=== PATIENT | female | born 1955 | race Caucasian/White ===

== ENCOUNTER 2020-12-09 00:28 | Day surgery (SDC) | payer BC, OTHER, SELFPAY ==
[2020-11-27 14:10] VITALS: BMI 35.2
--- NOTE | 2020-12-08 16:37 | PM.HPGS ---
History of Present Illness History of Present Illness Consent: Risks, benefits, and alternatives have been discussed and questions answered. Patient agrees to proceed with procedure. Chief complaint: neoplasm screening Z12.11 Narrative: Kadi Mccann is a 65 year old female Here for colon cancer screening. Her last colonoscopy was 10 years ago Review of Systems Review of Systems: All systems reviewed & are unremarkable except as noted in HPI and below PMFSH Past Medical History Medical History Diabetes HTN (hypertension) Hyperlipidemia Obesity JEAN (obstructive sleep apnea) Surgical History Surgical History History of carpal tunnel surgery History of foot surgery Social History Social History Smoking status: Never smoker Alcohol intake: current Drinks per week: 1 Substance use: never Substance use type: does not use Living arrangements: with family Spiritual care concerns: No Meds Home Medications and Allergies Home Medications Medication Instructions Recorded Confirmed Type atorvastatin 10 mg PO 3XW 11/27/20 12/09/20 History citalopram 20 mg PO DAILY 11/27/20 12/09/20 History clobetasol 1 applic TOPICAL PRN PRN 11/27/20 11/27/20 History losartan-hydrochlorothiazide 1 tablet PO DAILY 11/27/20 12/09/20 History metformin 500 mg PO BID 11/27/20 12/09/20 History montelukast 10 mg PO DAILY 11/27/20 12/09/20 History Allergies Allergy/AdvReac Type Severity Reaction Status Date / Time codeine Allergy Mild Headache Verified 12/09/20 09:42 Sulfa (Sulfonamide Allergy Mild Unknown Verified 12/09/20 09:42 Antibiotics) Exam Resp: Auscultation: clear to auscultation bilaterally Cardio: Rate: regular rate Rhythm: regular rhythm GI: GI Palp: Yes Soft to palpation and No Tenderness to palpation present (GI) Assessment and Plan Assessment and plan (1) Colon cancer screening: Code(s): Z12.11 - Encounter for screening for malignant neoplasm of colon Status: Acute Assessment and Plan: Colonoscopy with possible biopsy or polypectomy or cautery or injection of substances.
[2020-12-09 09:43] VITALS: BP 150/79; PULSE 91; RESP 20; TEMP 36.1; O2SAT 98; BMI 33.8
--- NOTE | 2020-12-09 09:56 | WPDANESEPPF ---
Anes - Initial Pre Proc Eval Procedure: Operation Date: 12/09/20 10:30 Proposed Procedures p Screening Colonoscopy - Salvatore Davis MD Date/Time: 12/09/20 09:56 Surgeon: Salvatore Davis MD Pre Op Diagnosis: neoplasm screening Z12.11 Patient Data Age: 65 Gender: F Height: 1.65 m Weight: 92.3 kg Last Vital Signs Temp 36.1 C L 12/09/20 09:43 Pulse 91 12/09/20 09:43 Resp 20 12/09/20 09:43 BP 150/79 H 12/09/20 09:43 Pulse Ox 98 12/09/20 09:43 Allergies Allergy/AdvReac Type Severity Reaction Status Date / Time codeine Allergy Mild Headache Verified 12/09/20 09:42 Sulfa (Sulfonamide Allergy Mild Unknown Verified 12/09/20 09:42 Antibiotics) Home Medications Medication Instructions Recorded Confirmed Type atorvastatin 10 mg PO 3XW 11/27/20 12/09/20 History citalopram 20 mg PO DAILY 11/27/20 12/09/20 History clobetasol 1 applic TOPICAL PRN PRN 11/27/20 11/27/20 History losartan-hydrochlorothiazide 1 tablet PO DAILY 11/27/20 12/09/20 History metformin 500 mg PO BID 11/27/20 12/09/20 History montelukast 10 mg PO DAILY 11/27/20 12/09/20 History Patient hx anesthesia problems: none Family hx anesthesia problems: none PMFSH Past Medical History Medical History (Updated 12/09/20 @ 10:01 by Ruel Laguerre MD) Diabetes HTN (hypertension) Hyperlipidemia Obesity JEAN (obstructive sleep apnea) Surgical History Surgical History (Updated 12/09/20 @ 10:09 by Ruel Laguerre MD) History of carpal tunnel surgery History of foot surgery Social History Social History Smoking status: Never smoker Alcohol intake: current Drinks per week: 1 Substance use: never Substance use type: does not use Living arrangements: with family Spiritual care concerns: No Anes - Eval Final PreProcedure Day of Procedure 12/09/20 09:56 Patient weight: obese Heart: regular rate and rhythm Lungs: clear to auscultation Airway: Mallampati scale class II Neurological: alert and oriented Last oral intake: >/= 8 hours ASA classification: III Emergent: no Anesthetic plan: proceed Anesthesia type and monitoring: general GIVS and standard monitoring Informed Consent: The patient's anesthetic plan and its attendant risks and benefits were discussed with the patient/family/POA. Questions were solicited and answers provided to the satisfaction of the patient/family/POA.
[2020-12-09 10:06] LABS: Glucose Point of Care 174 mg/dl (65-105)
[2020-12-09] MEDS: LACTATED RINGERS 1,000 ML 150 ML IV CONT (10:06)
[2020-12-09 10:36] VITALS: BP 88/35; PULSE 79; RESP 21; O2SAT 93
[2020-12-09 10:46] VITALS: BP 92/36; PULSE 75; RESP 18; O2SAT 92
[2020-12-09 10:56] VITALS: BP 136/61; PULSE 76; RESP 20; O2SAT 95
== END 2020-12-09 11:04 | disposition home or self-care (01) ==
PROVIDERS: PCP Internal Medicine; Visit Provider Internal Medicine Gastroenterology
PROC: 0DJD8ZZ Inspection of Lower Intestinal Tract, Via Natural or Artificial Opening Endoscopic (ICD-10-PCS; CPT 45378; principal; 2020-12-09 10:30)
DX: Z12.11 Encounter for screening for malignant neoplasm of colon (principal); D12.5 Benign neoplasm of sigmoid colon; K63.5 Polyp of colon; K64.4 Residual hemorrhoidal skin tags; I10 Essential (primary) hypertension; E78.5 Hyperlipidemia, unspecified; E11.9 Type 2 diabetes mellitus without complications; G47.33 Obstructive sleep apnea (adult) (pediatric); Z79.84 Long term (current) use of oral hypoglycemic drugs; E66.9 Obesity, unspecified; Z68.33 Body mass index [BMI] 33.0-33.9, adult
CPT/HCPCS: 45385; 82948; 88305; J2704; J7120

== ENCOUNTER → 2021-01-09 09:20 | Outpatient (CLI) | payer BC, OTHER, SELFPAY ==
--- NOTE | ~2021-01-09 | DEXA_ITS ---
Bone Density Report Name: Kadi Mccann Age: 65 Sex: Female Ethnicity: White Date of : 1955 Indication: postmenopausal; screening for osteoporosis; height loss; Referring Provider: JOEY, BRANDON Study: Bone densitometry was performed. Exam Date: January 09, 2021 Accession number: [id number] Bone Density: Region BMD T-score Z-score Classification AP Spine (L1-L4) 1.180 1.2 3.0 Normal Femoral Neck (Left) 0.702 -1.3 0.2 Osteopenia Total Hip (Left) 1.005 0.5 1.7 Normal Femoral Neck (Right) 0.773 -0.7 0.8 Normal Total Hip (Right) 1.035 0.8 2.0 Normal Total Hip Mean 1.020 0.7 1.9 Normal World Health Organization criteria for BMD impression classify patients as: Normal (T-score at or above -1.0), Osteopenia (T-score between -1.0 and -2.5), or Osteoporosis (T-score at or below -2.5). 10-year Fracture Risk(1): Major Osteoporotic Fracture 7.7% Hip Fracture 0.7% Reported Risk Factors: [place] (), Neck BMD=0.702, BMI=36.8 (1) FRAX(R) Version 3.08. Fracture probability calculated for an untreated patient. Fracture probability may be lower if the patient has received treatment. Clinical Information Provided by Patient: Has used the following medications: Calcium Patient maximum height was 65 Menopause Age: 43 No regular weight bearing exercise Drinks caffeinated beverages Onset of menses at age 14 Number of children 1 Impression: The patient has low bone mass, based on the Left Femoral Neck T-score. The patient has an estimated ten-year risk of hip fracture of 0.7% and an estimated ten-year risk of major fracture of 7.7%, based on the WHO FRAX algorithm. Discussion: BONE DENSITY IS LOW AT ONE OR MORE SKELETAL SITES. This patient's lowest T-score is low at one or more skeletal sites. It meets the World Health Organization's (WHO) criteria for ?low bone mass? (T-score between -1.0 and -2.5). The patient's 10-year risk of fracture as calculated by FRAX is less than the threshold where pharmacological therapy is recommended by the National Osteoporosis Foundation (NOF). However, all treatment decisions require clinical judgment and consideration of individual patient factors, including patient preferences, comorbidities, previous drug use, risk factors not captured in the FRAX model (e.g., frailty, falls, vitamin D deficiency, increased bone turnover, interval significant decline in bone density) and possible under or overestimation of fracture risk by FRAX. The patient should follow a healthful lifestyle (good nutrition with adequate calcium and vitamin D, and appropriate weight-bearing exercise). Follow-Up: Consider repeating this study in 2 to 3 years to reassess this patient's status, or sooner if there is some new clinical indication. Reported by: GEORGE on
--- NOTE | ~2021-01-09 | MM_ITS ---
EXAMINATION: MM screening jordyn BI w joo HISTORY: Screening mammogram TECHNIQUE: Craniocaudal and mediolateral oblique 3-D tomosynthesis images were obtained and synthetic 2-D images were generated. CAD analysis was submitted and interpreted. COMPARISON: No prior mammogram is available for comparison at this institution. BREAST PARENCHYMAL COMPOSITION: The breasts are almost entirely fatty. FINDINGS: Scattered bilateral benign microcalcifications. There is no evidence of suspicious mass, ca lcification, or architectural distortion to suggest malignancy in either breast. There has been no fajardo spicious interval change. IMPRESSION: 1. No mammographic evidence of malignancy. 2. Recommend routine screening mammography in one year. BI-RADS Category 2: Benign finding(s). Reviewed, dictated and finalized at location A.
== END ==
PROVIDERS: PCP Internal Medicine; Visit Provider Nurse Practitioner
DX: Z12.31 Encounter for screening mammogram for malignant neoplasm of breast (principal); Z78.0 Asymptomatic menopausal state; M85.852 Other specified disorders of bone density and structure, left thigh
CPT/HCPCS: 77063; 77067; 77080

== ENCOUNTER 2021-08-02 11:39 | Emergency (ER) | payer MEDICARE, SELFPAY ==
--- NOTE | ~2021-08-02 | XR_ITS ---
EXAMINATION: XR wrist LT min 3V DATE: 08/02/2021 12:04 INDICATION: Left wrist pain, swelling and abrasions post fall TECHNIQUE: Posteroanterior, ulnar deviation, oblique, and lateral views of the left wrist were obtain ed. COMPARISON: none FINDINGS: Irregular cortical contour with underlying linear lucency at the dorsal aspect of the metaphyseal reg ion suspicious for nondisplaced fracture. No evident intra-articular extension appreciated. No other lesions suspicious for fracture identified. Polyarticular osteoarthritis, moderate severity at the fi rst interphalangeal and second and third metacarpophalangeal joints and mild at the wrist, triscaphe, first carpometacarpal and first and fourth metacarpophalangeal joints. Soft tissues are unremarkable . IMPRESSION: 1. Possible nondisplaced fracture along the dorsal metaphysis of the distal left radius. There is how ever no significant overlying soft tissue swelling and appearance may be artifactual. Correlate for p oint tenderness at this location. 2. 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 Reviewed, dictated and finalized at location A. IMPRESSION: 1. Possible nondisplaced fracture along the dorsal metaphysis of the distal lef t radius. There is however no significant overlying soft tissue swelling and ap pearance may be artifactual. Correlate for point tenderness at this location. 2. 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
[2021-08-02 11:57] VITALS: BP 162/85; PULSE 84; RESP 18; TEMP 37.4; O2SAT 97
--- NOTE | 2021-08-02 12:09 | ED.UPPEXIN ---
HPI - Extremity Injury (Upper) General Chief Complaint: Extremity Injury, Upper Stated Complaint: Left hand Pain Time Seen by Provider: 08/02/21 12:24 Source: patient, family, RN notes reviewed and old records reviewed Mode of arrival: ambulatory Limitations: no limitations History of Present Illness HPI narrative: 66-year-old female presents to the [facility] with complaints of left wrist pain after tripping and falling onto an outstretched arm. No pain of the shoulder or the elbow. abrasion noted to the elbow. Tenderness to the distal aspect volar aspect, radius. No open wounds. Full range of motion of all 5 fingers with strong entry level mechanical engineer. No snuffbox tenderness. positive radial pulse. Sensation intact 5 fingers with capillary refill under 2 seconds Related Data Home Medications Medication Instructions Recorded Confirmed atorvastatin 10 mg PO 3XW 11/27/20 08/02/21 citalopram 20 mg PO DAILY 11/27/20 08/02/21 clobetasol 1 applic TOPICAL PRN PRN 11/27/20 08/02/21 losartan-hydrochlorothiazide 1 tablet PO DAILY 11/27/20 08/02/21 metformin 1,000 mg PO DIRECTED 11/27/20 08/02/21 montelukast 10 mg PO DAILY 11/27/20 08/02/21 metformin 500 mg PO DIRECTED 08/02/21 08/02/21 Allergies Allergy/AdvReac Type Severity Reaction Status Date / Time codeine Allergy Mild Headache Verified 08/02/21 11:41 Sulfa (Sulfonamide Allergy Mild Unknown Verified 08/02/21 11:41 Antibiotics) Review of Systems Review of Systems: All systems reviewed & are unremarkable except as noted in HPI and below Constitutional: Constitutional: Reports no additional constitutional complaints, Denies chills, Denies fever(s), Denies headache(s) and Denies weakness Eyes: Eyes: Reports no additional eye complaints ENT: Reports system reviewed and no additional complaints, except as documented, Denies vertigo, Denies dizziness and Denies headache(s) Cardiovascular: Cardiovascular: Reports no additional cardiovascular complaints, Denies chest pain, Denies syncope and Denies dyspnea Respiratory: Respiratory: Reports no additional respiratory complaints, Denies cough and Denies dyspnea Gastrointestinal: Gastrointestinal: Reports no additional gastrointestinal complaints, Denies abdominal pain, Denies nausea and Denies vomiting Musculoskeletal: Musculoskeletal: Reports as per HPI, Reports arthralgias (Left wrist), Reports joint swelling (Left wrist) and Denies numbness Integumentary/Breasts: Skin/Breast: Reports system reviewed and no additional complaints, except as docu Neurologic: Reports system reviewed and no additional complaints, except as documented, Denies confusion, Denies vertigo, Denies dizziness, Denies syncope, Denies headache(s), Denies focal weakness, Denies numbness and Denies weakness Psychiatric: Psychiatric: Reports no additional psychiatric complaints and Denies confusion Allergic/Immunologic: Allergic/Immunologic: Reports no additional allergic/immunologic complaints PMFSH Past Medical History Medical History Diabetes HTN (hypertension) Hyperlipidemia Obesity JEAN (obstructive sleep apnea) Surgical History Surgical History History of carpal tunnel surgery History of foot surgery Social History Social History Smoking status: Never smoker Alcohol intake: current Drinks per week: 1 Substance use: never Substance use type: does not use Spiritual care concerns: No Comments At the time of my signature, I reviewed and agree with the nursing past medical, surgical, social, and family history. There is no relevant family history pertinent to the patient complaint. Exam Const: General: healthy appearing, no acute distress and alert; No confusion Nutritional Appearance: well nourished Orientation/consciousness: patient oriented x3 Limitations: no limitations HENMT:
== END 2021-08-02 12:50 | disposition home or self-care (01) ==
PROVIDERS: Emergency Provider Nurse Practitioner; PCP Internal Medicine
DX: S52.502A Unspecified fracture of the lower end of left radius, initial encounter for closed fracture (principal); E11.9 Type 2 diabetes mellitus without complications; I10 Essential (primary) hypertension; E78.5 Hyperlipidemia, unspecified; W01.0XXA Fall on same level from slipping, tripping and stumbling without subsequent striking against object, initial encounter
CPT/HCPCS: 29125; 73110; 99214; A4565; G0463

== ENCOUNTER 2021-09-29 07:30 | Outpatient (RCR) | payer MEDICARE, SELFPAY ==
--- NOTE | 2021-09-07 10:52 | OTOPEVAL ---
OCCUPATIONAL THERAPY INITIAL EVALUATION REPORT 09/07/21 Thank you for referring Kadi Mccann to [facility].? The patient is scheduled to be seen for therapy? 1x/week for 3 weeks. Please review, sign, date and return this plan of care EULALIA. I agree with and certify that the following plan of care is medically necessary. Referring Physician Date Referring Provider: Lon Roe MD *OT Outpatient Evaluation Problem Diagnosis Left distal radius fracture Onset ~5 weeks ago Cause Fall Subjective Information Patient was treated Query Text:As Reported By Patient/ conservatively. Comes in Family wearing an immobilizer today, reports she is allowed to take it off at home for tasks, but should continue to wear when leaving the home. Reports difficulties with putting pressure through an extended wrist, like when she pushes up from a chair. She states she can do her ADLs, she just gets them done , but reports soreness in the wrist during. She and her own/run a farm. Prior Level of Function Activity Level (Last 3 Months) Hand Dominance Right Activity of Daily Living Ability Independent Cooking Yes Cleaning Yes Laundry Yes Shopping Yes Driving Yes Pain Assessment Timing of Pain Assessment Timing of Pain Assessment Assessment Pain Scale Pain Scale Used Numeric (1 - 10) Self Report Pain Assessment Left Wrist(s) Reported Pain Level 0 Lowest Pain Intensity 0 Greatest Pain Intensity 6 Pain Score Pain Score 0: Self Report Interventions Used Interventions Used By Clinicians Education,Exercise Upper Extremity Range of Motion Elbow/Forearm Range of Motion Bilateral Reason Not Measured WNL/Left,WNL/Right Elbow/Forearm Range of Motion Comments Bilateral pronation/supination is symmetrical and WNL. Wrist Range of Motion Right Wrist Flexion - Active 65 Wrist Extension - Active 60 Wrist Radial Deviation - Active 25 Wrist Ulnar Deviation - Active 30 Left Wrist Flexion - Active 35 Wrist Extension - Active 50 Wrist Radial Deviation - Active 25 Wrist Ulnar Deviation - Active 20 Finger Range of Motion Bilateral Reason Not Measured WNL/Left,WNL/Right Thumb Range of Motion
--- NOTE | 2021-09-15 10:41 | PCOTNOTE ---
Patient called & cancelled scheduled appointment this date due.
--- NOTE | 2021-09-29 07:50 | OTOPEVAL ---
OCCUPATIONAL THERAPY RE-EVALUATION AND DISCHARGE SUMMARY 09/29/21 Kadi presents today for OT re-evaluation following 2 sessions for HEP instruction and progression. Her ROM has returned to normal limits and she is tolerating gentle strengthening with no reports of pain. Plan to discharge today with patient independent with HEP. Thank you for referring Kadi Mccann to [facility].? Please review, sign, date and return this D/C Note EULALIA. I agree with and certify that the following plan of care is medically necessary. Referring Physician Date Referring Provider: Lon Roe MD Re-Evaluation Information Diagnosis Left distal radius fracture Onset ~8 weeks ago Cause Fall Additional Evaluation Detail Patient was treated conservatively. Subjective Information Patient presents today Query Text:As Reported By Patient/ reporting that her ROM and Family flexibility have improved since the start of care. She reports residual soreness after use, but no pains during or after use. She reports no functional limitations at this time. States she uses the brace outside of the home and does put it on if she's had a busy day and is sore after using the hand/wrist. Pain Assessment Timing of Pain Assessment Timing of Pain Assessment Re-assessment Pain Scale Pain Scale Used Numeric (1 - 10) Self Report Pain Assessment Left Wrist(s) Reported Pain Level 0 Lowest Pain Intensity 0 Greatest Pain Intensity 4 Pain Score Pain Score 0: Self Report Upper Extremity Range of Motion Elbow/Forearm Range of Motion Left Reason Not Measured WNL/Left Elbow/Forearm Range of Motion Comments Elbow flexion, extension, pronation, and supination remained WNL. Wrist Range of Motion Left Wrist Flexion - Active 60 Wrist Extension - Active 70 Wrist Radial Deviation - Active 25 Wrist Ulnar Deviation - Active 35 Wrist Range of Motion Comments Flexion improved from 35* Extension improved from 50* RD remained WNL at 25* UD improved from 20* Finger Range of Motion Left Reason Not Measured WNL/Left Thumb Range of Motion Left Reason Not Measured WNL/Left Hand Fios Line Installer/Pinch Strength Assessment Hand Left Fios Line Installer Strength (lbs) 35 Hand Fios Line Installer/Pinch Strength Comments Patient is independent with aviation all source intelligence strengthening HEP.
== END 2021-09-29 08:35 | disposition home or self-care (01) ==
LOC: ANHOT 07:30
PROVIDERS: PCP Internal Medicine; Referring Provider Orthopaedic Surgery; Visit Provider Orthopaedic Surgery
DX: S52.502D Unspecified fracture of the lower end of left radius, subsequent encounter for closed fracture with routine healing (principal)
CPT/HCPCS: 97110; 97165

== ENCOUNTER → 2022-04-19 11:01 | Outpatient (CLI) | payer MEDICARE, SELFPAY ==
--- NOTE | ~2022-04-19 | MM_ITS ---
EXAMINATION: MM screening jordyn BI w joo HISTORY: Screening mammogram TECHNIQUE: Craniocaudal and mediolateral oblique 3-D tomosynthesis images were obtained and synthetic 2-D images were generated. CAD analysis was submitted and interpreted. COMPARISON: 01/09/2021 BREAST PARENCHYMAL COMPOSITION: The breasts are almost entirely fatty. FINDINGS: No suspicious mass, calcification, or architectural distortion are identified in either elvia ast to suggest malignancy. There has been no suspicious interval change. IMPRESSION: 1. No mammographic evidence of malignancy. 2. Recommend routine screening mammography in one year. BI-RADS Category 1: Negative Reviewed, dictated and finalized at location A. R QUALITY CONTROL ENGINEER
== END ==
PROVIDERS: PCP Internal Medicine; Visit Provider Nurse Practitioner
DX: Z12.31 Encounter for screening mammogram for malignant neoplasm of breast (principal)
CPT/HCPCS: 77063; 77067

== ENCOUNTER 2023-04-06 07:15 | Outpatient (RCR) | payer MEDICARE, SELFPAY | END 2023-04-10 16:13 | disposition home or self-care (01) | LOC: ANHCPREHAB 07:15 | PROVIDERS: PCP Internal Medicine; Visit Provider Internal Medicine Cardiovascular Disease | DX: Z95.2 Presence of prosthetic heart valve (principal) | CPT/HCPCS: 93798 ==

== ENCOUNTER 2023-06-09 14:25 | Emergency (ER) | payer MEDICARE, SELFPAY ==
--- NOTE | 2023-06-09 14:36 | ED.FEMALEGU ---
HPI - Female Genitourinary General Chief complaint: Urogenital-Female Stated complaint: urinary/vaginal issue, head pressure,FLOYD Time Seen by Provider: 06/09/23 14:33 Source: patient Mode of arrival: ambulatory Limitations: no limitations History of Present Illness HPI Narrative: Kadi is a 68-year-old female patient presenting to the clinic today with complaints of urinary frequency and urgency x2 days. She also is reporting headache over her forehead and dizziness when bending forward. States that when she bends forward she feels off-balance. History of a open heart surgery last year. Is also type to diabetic. Reports that her blood sugar yesterday was 190. Related Data Home Medications Medication Instructions Recorded Confirmed citalopram 20 mg tablet 20 mg PO DAILY 11/27/20 12/15/21 metformin 500 mg tablet 1,000 mg PO DIRECTED 11/27/20 12/15/21 montelukast 10 mg tablet 10 mg PO DAILY 11/27/20 12/15/21 metformin 500 mg tablet 500 mg PO DIRECTED 08/02/21 12/15/21 cholecalciferol (vitamin D3) 25 25 mcg PO DAILY 10/14/21 12/15/21 mcg (1,000 unit) capsule vitamin B complex 1 cap PO DAILY 10/14/21 12/15/21 losartan 25 mg tablet mg 06/09/23 metoprolol succinate 25 mg mg PO 06/09/23 tablet,extended release 24 hr Allergies Allergy/AdvReac Type Severity Reaction Status Date / Time codeine Allergy Mild Headache Verified 06/09/23 15:09 Sulfa (Sulfonamide Allergy Mild Unknown Verified 06/09/23 15:09 Antibiotics) Review of Systems Review of Systems: Pertinent positives per HPI. Patient denies any fever, chills, rash, visual changes, cough,sore throat, shortness of breath, chest pain, palpitations, nausea, vomiting, diarrhea, constipation, abdominal pain. [facility] Past Medical History Medical History Diabetes Distal radius fracture, left History of basal cell carcinoma HTN (hypertension) Hyperlipidemia Nondisplaced fracture of distal end of ulna Obesity JEAN (obstructive sleep apnea) Surgical History Surgical History History of carpal tunnel surgery History of foot surgery Family History Family History Father Leukemia Mother Aorta disorder Grandparent Diabetes mellitus Sibling Hypertension Hyperlipidemia COPD (chronic obstructive pulmonary disease) Osteoporosis Basal cell carcinoma Social History Social History Smoking status: Never smoker Alcohol intake: never Drinks per week: 1 Substance use: never Substance use type: does not use Living arrangements: with family Occupation/Education: occupation Additional occupation/education comments: [employer] Spiritual care concerns: No Comments At the time of my signature, I reviewed and agree with the nursing past medical, surgical, social, and family history. There is no relevant family history pertinent to the patient complaint. Exam Narrative: General: Well-developed, well nourished, in no apparent distress Head: Normocephalic, atraumatic Eyes: Pupils equally round and reactive to light bilaterally, EOM intact, sclera and conjunctive clear, no discharge, lids normal Ears: TMs intact, clear, bulging, ear canals clear, no drainage, grossly hearing normal. Nose: Nares patent, yellow nasal discharge, moderate inflammation, frontal sinus tenderness. Mouth: Oropharynx without lesions or masses, good dentition, MMM. Postnasal drip Neck: Supple, trachea midline, no enlargement of anterior or posterior cervical nodes, no thyroid masses or goiter palpable. Cardio: Regular rate and rhythm, s1 and s2 normal, no murmur appreciated. Resp: Clear to auscultation bilaterally anteriorly and posteriorly, no rhonchi, rales, wheezing or rubs Abdomen: Soft, pliable, bowel sounds present in all quadr
--- NOTE | 2023-06-09 14:59 | ECG_ITS ---
Measurements Intervals [place] Rate: 75 P: 0 UT: 129 QRS: -21 QRSD: 99 T: 111 QT: 372 QTc: 416 Interpretive Statements SINUS RHYTHM CANNOT RULE OUT SEPTAL INFARCT, AGE INDETERMINATE CONSIDER INFERIOR INFARCT, AGE INDETERMINATE ST-T WAVE ABNORMALITY IN HIGH LATERAL LEADS- CONSIDER ISCHEMIA ABNORMAL ECG NO PREVIOUS ECG AVAILABLE FOR COMPARISON Electronically Signed On 06-09-2023 15:42:21 PULL WORKER by Bimal Keita D.O.
[2023-06-09 15:16] VITALS: BP 143/65; PULSE 74
[2023-06-09 15:19] VITALS: BP 149/77; BP 154/69
[2023-06-09 15:22] LABS: Glucose Point of Care 198 mg/dl (65-105)
== END 2023-06-09 15:46 | disposition home or self-care (01) ==
PROVIDERS: Emergency Provider Nurse Practitioner Family; PCP Internal Medicine
DX: H69.83 Other specified disorders of Eustachian tube, bilateral (principal); E11.65 Type 2 diabetes mellitus with hyperglycemia; J01.10 Acute frontal sinusitis, unspecified; R35.0 Frequency of micturition; E78.5 Hyperlipidemia, unspecified; I10 Essential (primary) hypertension; Z85.828 Personal history of other malignant neoplasm of skin; Z79.899 Other long term (current) drug therapy
CPT/HCPCS: 81003; 82948; 93005; 99213; G0463

== ENCOUNTER 2023-10-26 09:30 | Outpatient (RCR) | payer MEDICARE, SELFPAY ==
--- NOTE | 2023-09-22 16:16 | OPREHPOC ---
Outpatient Therapy Plan of Care This is a Multidisciplinary Plan of Care that may contain components documented by all disciplines (PT, OT, and ST.) PT Problem 1 PT Problem #1 Knowledge Deficit PT Goal 1 Goal *indep with HEP * good safety awareness with mobility Target Visit 8 PT Problem 2 PT Problem #2 Impaired Functional Mobility PT Goal 1 Goal improve standing balance, to improve safety with mobility, evident by: 1* single leg standing R x 10 sec with good stability 2* single leg standing L x 10 sec with good stability 3* pt static stand with eyes closed x 20 seconds with stable posture 4* tandem stand lead R x 30 seconds 5* tandem stand lead L x 30 seconds 6* further assessment of vestibular system as symptoms present Target Visit 8
--- NOTE | 2023-09-22 16:16 | PTOPEVAL1 ---
Assessment and note entered by Shi Feliz, PT Evaluation Information Assessment Status Evaluation Diagnosis vestibular rehab Onset April 2023 Subjective Information to ER in June with sinus infection, UTI; chronic issues with dizziness off/on for over 10 years; symptoms: room and head spinning- only last few seconds; increase dizziness: standing and looking up into cabinet, going to bed at night/lying down also reports: problems with walking and balance since heart surgery about 10 months ago; Reported Pain Level Pain Score 0: Self Report Assessment PT Clinical Summary Kadi has the diagnosis of vestibular rehab. She reports chronic issues with dizziness and it is less now, lasting only a few seconds. Dizziness Handicap index rating of 10/100. She went to the ENT and when he did the test she was nauseated and threw up when he turned her head to the R. She has multiple risk factors for dizziness: multiple meds, cardiac and HTN meds, sinus issues , visual issues, sleep apnea. With the evaluation, BPPV testing was negative, but with her head to the R reported pressure in her head ; she did report dizziness with supine to sit position change, lasting few seconds only; decreased balance and static balance with eyes closed, single leg stand and tandem standing. Skilled PT services are indicated for vestibular therapy--further assess BPPV as symptoms present, balance and education for HEP and safety with mobility. Plan of Care Interventions Neuro Re-education,Patient Education, Therapeutic Activities,Therapeutic Exercise PT Services Indicated Yes Treatment Frequency and 1-2x/wk for 8 visits Duration These treatments will address the objective and functional deficits as defined above. The patient will be advanced safely and appropriately in order for the patient to progress towards his/her prior level of function. Additional exercises will be introduced and as well as a comprehensive home exercise program upon discharge, if ne
--- NOTE | 2023-10-19 08:42 | PCPTNOTE ---
Pt no showed visit today. Left message with day and time for next appt.
--- NOTE | 2023-10-26 10:20 | PTOPDC ---
Assessment and note entered by Shi Feliz, PT Discharge Report Assessment Status Discharge Diagnosis vestibular rehab Onset April 2023 Subjective Information have some light headedness and dizziness when lie down - last few seconds only; feel like balance will always be an issue- have hip problems and that runs in my family; have sinus pressure in her head, going to dr next month and going to ask about meds for her sinus issues; blood pressure is monitored every day and goes to the patient care secretary, med was changed, has been little higher: 170/ 78; have patient care secretary, cardiac surgeon and general physician appointments next month; takes meclazine every night- have done for years; still getting the vitamin B shots once a month; Reported Pain Level Pain Score 0: Self Report Assessment PT Clinical Summary Kadi has received 6 PT sessions. Compared to the initial evaluation: Dizziness Handicap index from 10 to 12% limitation in activity level; today reports sinus pressure and dizziness only noted with going to bed- sitting to lying on her R side, eased in few seconds and standing and looking/reaching up into cabinet; Improved balance and LE strength with single leg standing and tandem standing. BPPV testing continues to be negative for nystagmus, but reports sinus pressure, on R more than L side. Education completed for safety with mobility, vestibular issues and HEP. Her vestibular issues may be caused by: sinus issues, multiple meds, cardiac issues. The goals were partially met. Education and safety issues completed. Discharge PT. Plan of Care PT Services Indicated No
== END 2023-10-26 12:02 | disposition home or self-care (01) ==
LOC: ANHPT 09:30
PROVIDERS: PCP Internal Medicine
DX: H81.399 Other peripheral vertigo, unspecified ear (principal)
CPT/HCPCS: 97110; 97112; 97162; 97530

== ENCOUNTER 2024-02-01 07:41 | Outpatient (CLI) | payer MEDICARE, SELFPAY ==
--- NOTE | ~2024-02-01 | DEXA_ITS ---
Bone Density Report Name: VIKY YEH Age: 68 Sex: Female Ethnicity: White Date of : 1955 Indication: postmenopausal; screening for osteoporosis; height loss; prior fracture; cancer; Referring Provider: Chrystal, Reyna Study: Bone densitometry was performed. Exam Date: February 01, 2024 Accession number: [id number] Bone Density: Region BMD T-score Z-score Classification AP Spine(L2, L3, L4) 1.111 0.3 2.3 Normal Femoral Neck (Left) 0.711 -1.2 0.4 Osteopenia Total Hip (Left) 1.001 0.5 1.9 Normal Femoral Neck (Right) 0.800 -0.4 1.2 Normal Total Hip (Right) 1.023 0.7 2.0 Normal Femoral Neck Mean 0.756 -0.8 0.8 Normal Total Hip Mean 1.012 0.6 2.0 Normal World Health Organization criteria for BMD impression classify patients as: Normal (T-score at or above -1.0), Osteopenia (T-score between -1.0 and -2.5), or Osteoporosis (T-score at or below -2.5). 10-year Fracture Risk(1): Major Osteoporotic Fracture 14% Hip Fracture 1.3% Reported Risk Factors: [place] (), Neck BMD=0.711, BMI=34.7, previous fracture (1) FRAX(R) Version 3.08. Fracture probability calculated for an untreated patient. Fracture probability may be lower if the patient has received treatment. Clinical Information Provided by Patient: Has had a low trauma fracture Has used the following medications: Vitamin D, multi Has the following medical conditions: Cancer Patient maximum height was 65.5 Menopause Age: 51 No regular weight bearing exercise Drinks caffeinated beverages Onset of menses at age 15 Number of children 1 Impression: The patient has low bone mass, based on the Left Femoral Neck T-score. The patient has risk factors, including: previous fracture. Discussion: BONE DENSITY IS LOW AT ONE OR MORE SKELETAL SITES. This patient's lowest T-score is low at one or more skeletal sites. It meets the World Health Organization's (WHO) criteria for ?low bone mass? (T-score between -1.0 and -2.5). The patient's 10-year risk of fracture as calculated by FRAX is less than the threshold where pharmacological therapy is recommended by the National Osteoporosis Foundation (NOF). However, all treatment decisions require clinical judgment and consideration of individual patient factors, including patient preferences, comorbidities, previous drug use, risk factors not captured in the FRAX model (e.g., frailty, falls, vitamin D deficiency, increased bone turnover, interval significant decline in bone density) and possible under or overestimation of fracture risk by FRAX. The patient should follow a healthful lifestyle (good nutrition with adequate calcium and vitamin D, and appropriate weight-bearing exercise). Follow-Up: Consider repeating this study in 2 to 3 years to reassess this patient's status, or sooner if there is some new clinical indication. Reported by: FLORENTINO on 02/01/2024 8:07:00 AM. Reviewed, dictated and finalized at location A.
== END 2024-02-01 07:42 | disposition home or self-care (01) ==
LOC: CHSIMG 07:44
PROVIDERS: PCP Internal Medicine; Visit Provider Nurse Practitioner
DX: Z78.0 Asymptomatic menopausal state (principal); M85.88 Other specified disorders of bone density and structure, other site
CPT/HCPCS: 77080

== ENCOUNTER 2024-03-22 07:41 | Outpatient (CLI) | payer MEDICARE, SELFPAY ==
--- NOTE | ~2024-03-22 | MM_ITS ---
EXAMINATION: MM screening [facility] BI w joo HISTORY: Screening TECHNIQUE: Craniocaudal and mediolateral oblique 3-D tomosynthesis images were obtained and synthetic 2-D images were generated. CAD analysis was submitted and interpreted. COMPARISON: Comparison to multiple prior studies sequentially, with oldest reviewed study dated 12/2020. BREAST PARENCHYMAL COMPOSITION: Not Dense: The breasts are almost entirely fatty. FINDINGS: There is no evidence of suspicious mass, calcification, or architectural distortion to sugg est malignancy in either breast. There has been no suspicious interval change. IMPRESSION: 1. No mammographic evidence of malignancy. 2. Recommend routine screening mammography in one year. BI-RADS Category 1: Negative Reviewed, dictated and finalized at location B. TAL ATTACHER
== END 2024-03-22 07:42 | disposition home or self-care (01) ==
PROVIDERS: PCP Internal Medicine; Visit Provider Obstetrics & Gynecology Gynecology
DX: Z12.31 Encounter for screening mammogram for malignant neoplasm of breast (principal)
CPT/HCPCS: 77063; 77067

== ENCOUNTER 2024-09-20 06:34 | Outpatient (CLI) | payer MEDICARE, SELFPAY ==
--- NOTE | ~2024-09-20 | MR_ITS ---
MRI of the lumbar spine Clinical History: Right sciatica Technique: Axial T2-weighted images, and sagittal T1-weighted, T2-weighted, and and T2 fat-sat images were acquired. Findings: No acute fracture. 3 mm retrolisthesis of L2 over L3 present. 4 mm anterolisthesis of L3 ov er L4 present. No suspicious bone marrow signal abnormality seen. At L1-L2, there is minimal disc bulge. There is severe facet arthropathy. No central canal stenosis. There is moderate left neural foraminal narrowing, and mild right neural foraminal narrowing. At L2-L3, there is severe degenerative disc narrowing. There is disc bulge with severe facet arthropa thy result in severe spinal canal stenosis/thecal sac compression. There is severe bilateral neural f oraminal, otherwise. At L3-L4, there is severe degenerative spurring. Disc bulge and severe facet arthropathy result in se john spinal canal stenosis/thecal sac compression. There is severe bilateral neural foraminal narrowi ng, right worse than left. At L4-L5, there is severe degenerative disc narrowing. Diffuse disc bulge and severe facet arthropath y are present, with minimal central canal stenosis. There is severe bilateral neural foraminal narrow ing, right worse than left. At L5-S1, there is disc bulge with severe facet arthropathy. No saeed central canal stenosis. There i s severe bilateral neural foraminal narrowing. Paravertebral soft tissues are unremarkable. Impression: Severe degenerative spondylosis throughout the lumbar spine, with multilevel spinal canal stenosis an d neural foraminal narrowing. 3 mm retrolisthesis of L2 over L3. 4 mm anterolisthesis of L3 over L4. Reviewed, dictated and finalized at [facility]. Impression: Severe degenerative spondylosis throughout the lumbar spine, with multilevel sp inal canal stenosis and neural foraminal narrowing. 3 mm retrolisthesis of L2 over L3. 4 mm anterolisthesis of L3 over L4.
--- OUTSIDE RECORDS SUMMARY | 2024-09-20 06:40 | XMS_ITS | Referral Summary ---
Author Organization [facility] [address] Address [address] [place] [address] Care Team Providers Care Clarifying Plant Operator Name Role Phone Dread Jack MD Primary Care Provider [phone] Aleksandr Restrepo MD Unavailable [phone] Alessandra Carlos MD, Alonso Mcfarland Unavailable [phone] Allergies Active Allergy Reactions Criticality Noted Date Comments Codeine Headache,Nausea & Vomiting Low 08/25/2022 Tolerates oxycodone 11/06/22 Sulfa (Sulfonamide Antibiotics) Hives,Headache Medium 08/25/2022 Medications citalopram (CeleXA) 20 mg tablet Take 1 tablet (20 mg total) by mouth daily Active atorvastatin (LIPITOR) 10 mg tablet Take 1 tablet (10 mg total) by mouth 3 (three) times a week M-W-F @ 9 Active montelukast (SINGULAIR) 10 mg tablet Take 1 tablet (10 mg total) by mouth nightly Active vitamin B complex capsule Take 1 capsule by mouth daily Active calcium carbonate-vitamin D3 (Caltrate with Vitamin D3) 1,500 mg (600mg elemental) -800 unit per tablet Take 1 tablet by mouth daily 9 Active fluticasone propionate (FLONASE) 50 mcg/actuation nasal spray Administer 2 sprays into each nostril daily as needed 7 Active betamethasone dipropionate (DIPROSONE) 0.05 % ointment APPLY TOPICALLY AND RUB IN WELL TO THE AFFECTED AREA TWICE DAILY UNTIL CLEAR. Active losartan (COZAAR) 50 mg tablet Take 1 tablet (50 mg total) by mouth daily Active metFORMIN (GLUCOPHAGE) 500 mg tablet Active cyanocobalamin, vitamin B-12, 1,000 mcg/mL kit Inject as directed Active Active Problems Problem Noted Date Diagnosed Date Fatigue 07/30/2023 Vertigo 07/30/2023 Chronic rhinitis 07/24/2023 Unspecified atrial fibrillation 11/15/2022 Aortic stenosis, severe 11/04/2022 Family history of hyperlipidemia 10/12/2022 Hypertension 10/12/2022 Aortic valve stenosis 10/11/2022 Anxiety 11/20/2019 Sleep apnea 11/20/2019 Vitamin D deficiency 11/20/2019 Bicuspid aortic valve 11/08/2018 Obstructive sleep apnea of adult 06/05/2018 Benign essential hypertension 05/01/2018 Diabetes mellitus 05/01/2018 Hyperlipidemia 05/01/2018 Aortic stenosis 05/01/2018 Dyslipidemia 04/03/2018 Social History Tobacco Use Types Packs/Day Years Used Date Smoking Tobacco: Never Tobacco Cessation:Counseling Given: Not Answered Social Connection and Isolat ion Panel [NHANES] Answer Date Recorded In a typical week, how many times do you talk on the phone with family, friends, or neighbors? More than three times a week 11/07/2022 How often do you get togethe r with friends or relatives? More than three times a week 11/07/2022 How often do you attend chur or bahai services? More than 4 times per year 11/07/2022 Do you belong to any clubs o r organizations such as samaritan groups, unions, fraternal or athletic groups, or school groups? No 11/07/2022 How often do you attend meet ings of the clubs or organizations you belong to? Never 11/07/2022 Are you , , di vorced, , never , or living with a partner? 11/07/2022 AUDIT-C Answer Date Recorded Q1: How often do you have a drink containing alc ohol? Monthly or less 11/07/2022 Q2: How many drinks containi ng alcohol do you have on a typical day when you are drinking? 1 or 2 11/07/2022 Q3: How often do you have si x or more drinks on one occasion? Never 11/07/2022 Overall Financial Resource Strain (CARDIA) Answe r Date Recorded How hard is it for you to pa y for the very basics like food, housing, medical care, and heating? Not hard at all 11/07/2022 Hunger Vital Sign Answer Date Recorded Within the past 12 months, y ou worried that your food would run out before you got the money to buy more. Never true 11/08/19 23 Within the past 12 months, t he food you bought just didn't last and you didn't have money to get more. Never true 11/07/2022 PRAPARE - Transportation Answer Date Re corded In the past 12 months, has l ack of transportation kept you from medical appointments or from getting medications? No 10/2022 In the past 12 months, has l ack of transportation kept you from meetings, work, or from getting things needed for daily living? No 11/07/2022 Housing Stability Vital Sign Answer Rahul e Recorded In the last 12 months, was t here a time when you were not able to pay the mortgage or rent on time? No 11/07/2022 In the last 12 months, how many places have you lived? 1 11/07/2022 In the last 12 months, was t here a time when you did not have a steady place to sleep or slept in a care home (including now)? No 11/07/2022 Personal Safety Answer Date Recorded Have you ever been in or are you currently in a harmful physical or emotional relationship or is someone making you feel afraid or unsafe? Denies 11/04/2022 Education Answer Date Recorded What is the highest level of school you have completed or the highest degree you have received? 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 Gender Identity Not on file Sexual Orientation Not on file Last Filed Vital Signs Vital Sign Reading Time Taken Comments Blood Pressure 121/71 12/12/2023 11:02 AM CDT Pulse 76 12/12/2023 11:02 AM CDT Temperature 37 C (98.6 F) 11/09/2022 11:38 AM CDT Respiratory Rate 16 12/12/2023 11:02 AM CDT Oxygen Saturation 99% 12/12/2023 11:02 AM CDT Inhaled Oxygen Concentration - - Weight 91.6 kg (202 lb) 12/12/2023 11:02 AM CDT Height 165.1 cm (5' 5) 12/12/2023 11:02 AM CDT Body Mass Index 33.61 12/12/2023 11:02 AM CDT Plan of Treatment Not on file Medical Devices Implanted Type Area Vibration Engineer Device Identifier Shelf Expiration Date Model / Serial / Lot [employer] Inspiris Resilia Leaflet Aortic Valve 23mm [id number] - [id number] - [id number] Implanted:Qty: 1 on 11/04/2022 by Aleksandr Restrepo MD at [facility] Prosthetic Valve N/A: Heart [employer] 05/31/2026 [id number] / [id number] / Procedures Procedure Name Priority Date/Time Associated Diagnosis Comments EGFR Routine 11/09/2022 5:41 AM CDT HEMOGLOBIN A1C Routine 10/31/2022 10:42 AM CDT Preop testing Elevated glucose from Last 3 Months or Most Recently Relevant to Health Maintenance Results * eGFR (11/09/2022 5:41 AM CDT) eGFR 97 mL/min/1. 73 m2 [facility] LOCO Comment: Interpretive Data Reference Interval Normal >/= 90 mL/min/1.73m2 Mildly decreased* 60 - 89 mL/min/1.73m2 Mildly to moderately decreased 45 - 59 mL/min/1.73m2 Moderately to severely decreased 30 - 44 mL/min/1.73m2 Severely decreased 15 - 29 mL/min/1.73m2 Kidney Failure < 15 mL/min/1.73m2 *Relative to young adult level Estimated glomerular filtration rate is determined by the 2020 CKD-EPI equation recommended by the National Kidney Foundation (A Unifying Approach to GFR Estimation: Recommendations of the NKF-ASK Task Force on Reassessing the Inclusion of Race in Diagnosing Kidney Disease, JASN 2020). The CKD-EPI equation should not be used for patients with unstable renal function and has not been validated in children and those over 70. Current interpretive data was last reviewed 2021. Blood 11/09/2022 5:41 AM CDT 11/09/2022 5:46 AM CDT Aleksandr Restrepo MD LAB BLOOD ORDERABLES Final R esult Performing Organization Address [facility] Co de Phone Number [facility] [phone] [place] [address] * (ABNORMAL) Hemoglobin A1c (10/31/2022 10:42 AM CDT) Hgb A1C 7.6(H) 4.0 - 5.6 % [facility] Estimated Average Glucose 171 mg/dL [facility] Comment: The ADA recommends reporting an estimated Average Glucose (eAG) with all Hemoglobin A1c results using the equation derived from a study of 507 normal and diabetic adults. Minority populations were underrepresented and children were not included. (Diabetes Care 31:7780-2121, 2008). The eAG is not equivalent to a fasting glucose. Blood 10/31/2022 10:4 2 AM CDT 10/31/2022 10:49 AM CDT Aleksandr Restrepo MD LAB BLOOD ORDERABLES Final R esult Performing Organization Address [facility] Co de Phone Number [facility] [phone] [address] [facility] [place] [address] from Last 3 Months or Most Recently Relevant to Health Maintenance Insurance CHOICE PRF [place] [employer] MEDICARE [employer]IC Advance Directives For more information, please contact: [phone] Documents on File Type Date Recorded Patient Melt Helper Expl anation ADVANCE DIRECTIVE 11/04/2022 7:00 AM Power of Bond Analyst-Medical * Full Code (Latest Code Status on File) Date Activated Date Inactivated Comments 11/04/2022 12:52 PM 11/09/2022 7:54 PM Care Teams Clarifying Plant Operator Relationship Specialty Start Date End Date Dread Jack MD PCP - General Internal Medicine 11/07/22 Aleksandr Restrepo MD Surgeon Cardiothoracic Surgery 11/09/22 Alonso Aparicio Jr., MD [address] [place] [address] Consulting Physician Cardiovascular Disease 11/09/22
--- OUTSIDE RECORDS SUMMARY | 2024-09-20 06:40 | XMS_ITS | Clinical Summary ---
Author Organization [facility] Address [address] [place] [address] Care Team Providers Care Assisted Living Care Manager Name Role Phone Dread Jack MD Primary Care Provider [phone] Allergies Active Allergy Reactions Criticality Noted Date Comments Codeine Headache Medium 04/14/2009 Sulfa (Sulfonamide Antibiotics) Hives High 04/03 Medications Multivitamins-Ca- Iron-Minerals (ONE-A-DAY WOMENS FORMULA) 27-0.4 mg Oral Tab Take 1 Tab by mouth daily. Active Meclizine 25 mg Oral Cap Take by mouth. Active citalopram (CELEXA) 20 mg Oral tablet Take 20 mg by mouth daily at bedtime. Active ASPIRIN (LINDA LOW STRENGTH ORAL) Take by mouth. Active fluticasone (FLONASE) 50 mcg/spray [place]haw, Suspension 7 Active montelukast (SINGULAIR) 10 mg tablet 7 Active losartan-hydroCHL OROthiazide (HYZAAR) 50-12.5 mg tablet TAKE ONE TABLET DAILY 5 9 Active atorvastatin (LIPITOR) 10 mg tablet TAKE ONE TABLET DAILY 1 9 Active metFORMIN (GLUCOPHAGE) 500 mg tablet TAKE ONE TABLET DAILY 4 9 Active CONTOUR NEXT TEST STRIPS Strip TEST TWICE DAILY 3 9 Active calcium carbonate/vitamin D3 (CALTRATE 600 + D ORAL) Active omega-3/dha/epa/f geovani oil/krill (MEGARED ADVANCED 4-IN-1 ORAL) Active flu vaccine quadrivalent 36mos up,PF, (Afluria Qd ,3yr up,,PF,) 60 mcg (15 mcg x 4)/0.5 mL Syringe syringe Afluria Qd 2018- (36 mos up)(PF)60 mcg (15 mcg x4)/0.5 mL IM syringe Active Active Problems Problem Noted Date Diagnosed Date Anxiety 11/20/2019 Benign essential hypertension 11/20/2019 Sleep apnea 11/20/2019 Vitamin D deficiency 11/20/2019 Bicuspid aortic valve 11/08/2018 Diabetes mellitus 11/08/2018 Dyslipidemia 04/03/2018 Family History Medical History Relation Name Comments Cancer Father bone & leukemia Breast Cancer Maternal Aunt Heart Disease Mother Hypertension Sister 1 Hypertension Sister 2 Hypertension Sister 3 Colon Cancer Neg Hx Ovarian Cancer Neg Hx Relation Name Status Comments Father Maternal Aunt Mother Sister 1 Alive Sister 2 Alive Sister 3 Alive Social History Tobacco Use Types Packs/Day Years Used Date Smoking Tobacco: Never Smokeless Tobacco: Never Alcohol Use Standard Drinks/Week Comments Yes 0 (1 standard drink = 0.6 oz pur e alcohol) occasionally Comments No Sex and Gender Information Value Date Recorded Sex Assigned at Not on file Legal 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 Gender Identity Not on file Sexual Orientation Not on file Occupation Industry Job Start Date Job End Date Not on file Not on file Not on file Not on file Last Filed Vital Signs Vital Sign Reading Time Taken Comments Blood Pressure 112/70 11/20/2019 9:23 AM CDT Pulse - - Temperature - - Respiratory Rate - - Oxygen Saturation - - Inhaled Oxygen Concentration - - Weight 87.1 kg (192 lb) 11/20/2019 9:23 AM CDT Height 165.1 cm (5' 5) 11/20/2019 9:23 AM CDT Body Mass Index 31.95 11/20/2019 9:23 AM CDT Plan of Treatment Health Maintenance Due Date Last Done Comments DIABETES ANNUAL FOOT EXAM 1974 DIABETES ANNUAL RETINAL EXAM 1974 DIABETES MICROALBUMIN ANNUAL SCREEN 1974 LDL CHOLESTEROL ANNUAL 1974 FIT-DNA Q 3 years 2001 FIT/FOBT Q 1 year 2001 Flex Sig/CT Colonography Q 5 years 2001 ZOSTER VACCINE (1 of 2) 2006 DIABETES HBA1C Q 6 MONTHS 10/10/2018 04/12/2018 BREAST CANCER SCREENING 11/19/2020 11/20/19 20, 11/05/2018, 09/18/2017, Additional history exists DTAP/TDAP/TD VACCINES (2 - T d or Tdap) 01/11/2021 01/11/2011 OSTEOPOROSIS SCREENING 2021 05/13/2011, 2009 COLORECTAL SCREENING 04/04/2021 04/04/2011 Colorectal Cancer Screening 04/04/2021 PNEUMOCOCCAL VACCINE 50+ YEA RS (3 of 3 - PCV20 or PCV21) 2023 2018, 12/01/2016 INFLUENZA VACCINE (#1) 2023 8, 01/04/2017, 02/02/2016, Additional history exists RSV VACCINE (60+ or ) (1 - 1-dose 75+ series) 2031 Procedures Procedure Name Priority Date/Time Associated Diagnosis Comments MAMMO 3D KEVIN SCREEN BILAT W OR WO CAD Routine 11/20/2019 8:37 AM CDT Breast cancer screening by mammogram XR DEXA BONE DENSITY AXIAL 1 OR MORE SITES Routine 05/13/2011 8:38 AM STAPLE LASTER Special screening for osteoporosis from Last 3 Months or Most Recently Relevant to Health Maintenance Results * MAMMO SCRN BILAT 3D KEVIN W OR WO CAD (11/20/2019 8:37 AM CDT) Anatomical Region Laterality Modality Breast Bilateral Mammography Narrative 11/20/2019 8:40 AM CDT Bilateral Digital Mammogram with CAD and 3D Tomography Reason for Exam: Screening Comparison: Compared to: 11/05/2018 MAMMO SCRN BILAT 3D KEVIN W OR WO CAD, 09/18/2017 MAMMO SCRN BILAT 3D KEVIN W OR WO CAD, and 09/06/2016 MAMMO SCRN BILAT 3D KEVIN W OR WO CAD Technique: 3D MLO and CC digital tomosynthesis images were acquired and synthesized 2D images (C view) were generated. This digital mammogram was also analyzed by the Computer Aided Detection System CAD). Findings: The breasts are almost entirely fatty. There are no suspicious masses, areas of architectural distortions, or microcalcifications to suggest malignancy. No significant new findings since the prior mammogram(s). Impression: Negative screening mammogram. Recommendation: Routine annual follow-up Overall Assessment: Birads Category 1: Negative us Lloyd Nelson MD MAMMO ORDERABLES Final Resul t * XR DEXA BONE DENSITY AXIAL 1 OR MORE SITES (05/13/2011 8:38 AM STAPLE LASTER) Anatomical Region Laterality Modality Digital Radiogra phy 05/13/2011 8:27 AM STAPLE LASTER Narrative 05/13/2011 9:25 AM STAPLE LASTER XR DEXA BONE DENSITY AXIAL 1 OR MORE SITES HISTORY: 56 yo F with postmenopausal symptoms on calcium supplementation needing evaluation for osteoporosis. PROCEDURE: Using a [employer] dual energy x-ray absorptiometry system, the patient's bone mineral density was measured over the lumbar spine, forearm and femurs. Comparison was made to age and sex matched normal values. The L2 and L4 vertebral bodies were excluded from bone mineral density measurements secondary to the presence of sclerotic degenerative changes. FINDINGS: Lumbar Spine ( L1-L3, - L2 ) Bone Mineral Density = 1.195 gm/cm2 Compared to young adult (T-score), difference of +0.3 Standard Deviations. The patient's spine BMD is normal when compared to that of a young adult. Left Femoral Neck Bone Mineral Density = 0.969 gm/cm2 Compared to young adult (T-score), difference of -0.5 Standard Deviations. The patient's left femoral neck BMD is normal when compared to that of a young adult. Right Femoral Neck Bone Mineral Density = 1.028 gm/cm2 Compared to young adult (T-score), difference of -0.1 Standard Deviations. The patient's right femoral neck BMD is normal when compared to that of a young adult. Left Radius 33% Bone Mineral Density = 0.872 gm/cm2 Compared to young adult (T-score), difference of 0.0 Standard Deviations. The patient's left Radius 33% BMD is normal when compared to that of a young adult. No prior DEXA studies are available for comparison. Procedure Note Anders Rubin DO - 05/13/2011 XR DEXA BONE DENSITY AXIAL 1 OR MORE SITES HISTORY: 56 yo F with postmenopausal symptoms on calcium supplementation needing evaluation for osteoporosis. PROCEDURE: Using a [employer] dual energy x-ray absorptiometry system, the patient's bone mineral density was measured over the lumbar spine, forearm and femurs. Comparison was made to age and sex matched normal values. The L2 and L4 vertebral bodies were excluded from bone mineral density measurements secondary to the presence of sclerotic degenerative changes. FINDINGS: Lumbar Spine ( L1-L3, - L2 ) Bone Mineral Density = 1.195 gm/cm2 Compared to young adult (T-score), difference of +0.3 Standard Deviations. The patient's spine BMD is normal when compared to that of a young adult. Left Femoral Neck Bone Mineral Density = 0.969 gm/cm2 Compared to young adult (T-score), difference of -0.5 Standard Deviations. The patient's left femoral neck BMD is normal when compared to that of a young adult. Right Femoral Neck Bone Mineral Density = 1.028 gm/cm2 Compared to young adult (T-score), difference of -0.1 Standard Deviations. The patient's right femoral neck BMD is normal when compared to that of a young adult. Left Radius 33% Bone Mineral Density = 0.872 gm/cm2 Compared to young adult (T-score), difference of 0.0 Standard Deviations. The patient's left Radius 33% BMD is normal when compared to that of a young adult. No prior DEXA studies are available for comparison. Lydia Ponce NP DIAGNOSTIC IMAGING ORDERABLES Fi nal Result from Last 3 Months or Most Recently Relevant to Health Maintenance Insurance [address] [place] [address] [facility] Care Teams Assisted Living Care Manager Relationship Specialty Start Date End Date Dread Jack MD PCP - General Internal Medicine 04/16/10
--- OUTSIDE RECORDS SUMMARY | 2024-09-20 06:40 | XMS_ITS | Data Portability ---
Author Organization [facility] Address [address] [facility] [place] [address] Care Team Providers Care Software Quality Assurance Specialist Name Role Phone ELIGIO STANTON Station Installer NITHIN PORTILLO Hand Cloth Folder [phone] MELIDA JACK Primary Care Provider LEIDY LUQUE Plumbing Foreman Assessment Encounter Date Assessment Date Assessment LastModified by Organization Details LastModified Time 07/01/2024 07/01/2024 DC amlodipine A1c CMP CBC advanced lipid panel with cardio inflammation increase metoprolol succinate to 50 mg keep regular follow up [email or web address] Not available 07/06/2024 21:47:00 07/29/2024 07/29/2024 B12 shot today increase the metoprolol succinate ER 250 mg once a day and 25 mg once a day for a total of 75 mg daily do not cut pills in half. She will see me back in a month she just had blood work drawn we are trying to retrieve that review it when it becomes available see me back in 1 month for blood pressure follow up [email or web address] Not available 07/29/2024 13:35:09 08/28/2024 08/28/2024 Medrol Dosepak physical therapy we will also increase her metoprolol to 50 b.i.d. follow up 3 weeks needs her B12 shot today as well [email or web address] Not available 09/08/2024 17:25:04 09/16/2024 09/16/2024 Not getting any better with therapy we will try to get an MRI I think her blood pressure is up because of her obvious discomfort. So we will continue to monitor that she will see me back in 2 months [email or web address] Not available 09/16/2024 22:46:27 Plan of Treatment Reminders Order Date Submit Date Provider Last Modified By Organization Details Last Modified Time Details Appointments NURSE ONLY 2024 09:00A M Nurse Not available Not available Not available ANY 15 2024 09:15A M Melida Jack MD Not available Not available Not available Lab HbA1c (hemoglob in A1c), blood 2024 025 [employer] [facility], [address] [facility], [place], [address], 07/29/2024 11:58:40 CMP, serum or plasma 2024 025 [employer] [facility], [address] [facility], [place], [address], 07/29/2024 11:58:40 CBC w/ auto diff 2024 025 [employer] [facility], [address] [facility], [place], [address], 07/29/2024 11:58:40 lipid panel, serum 2024 025 [employer] [facility], [address] [facility], [place], [address], 07/29/2024 11:58:40 Referral physical therapist referral 2024 025 [facility], [address] [place], [address], 09/05/2024 17:29:37 Procedures None recorded. Surgeries None recorded. Imaging MRI, lumbar spine, w/o contrast 2024 025 [email or web address] [facility], [address], [address] [address], [place], [address], 09/16/2024 18:06:12 Medication Orders cyclobenz aprine 10 mg tablet 2024 025 [id number], [address] [facility], [place], [place], [id number], 09/14/2024 05:02:37 cyanocoba meka (vit B-12) 1,000 mcg/mL injection solution [address] [place] [address] [facility], [address] [place], [place], [id number], 08/28/2024 17:11:09 metoprolo l succinate ER 25 mg tablet,ex tended release 24 hr [address] [facility], [address] [place], [place], [id number], 07/29/2024 13:12:33 cyanocoba meka (vit B-12) 1,000 mcg/mL injection solution [address] [place] [address] [facility]68[facility], [address] [place] [address], [id number], 07/29/2024 13:12:33 cyanocoba meka (vit B-12) 1,000 mcg/mL injection solution [address] [place] [address] [facility]25838, [address] [place], [place], [id number], 06/24/2024 11:14:01 Patient TargetsNo targets recorded. Patient Instructions Encounter Date Encounter Id Patient Instructions Last Modified By Organization Details Last Modified Time 07/01/2024 [id number] A healthy lifestyle: care instructions [email or web address] Not available 07/01/2024 17:54:10 07/29/2024 [id number] A healthy lifestyle: care instructions [email or web address] Not available 07/29/2024 13:12:33 08/28/2024 [id number] A healthy lifestyle: care instructions [email or web address] Not available 08/28/2024 17:11:09 09/16/2024 [id number] A healthy lifestyle: care instructions [email or web address] Not available 09/16/2024 18:06:12 Reason for Referral Physical Therapist Referral for Disorder of right sciatic nerve Referring Physician: Melida Jack, Internal Medicine, Encounter Date: 08/28/2024 Results Created Date Observation Date Name Description Value Unit Range Abnormal Flag Note LastModifiedBy Organization Detail LastModifiedTime Result Notes None recorded. Problems Name Problem SNOMED Code Status Onset Date Resolution Date Notes Provider Name and Address Organization Details Recorded Time Type 2 diabetes mellitus 94149731 Active 2023 Melida Jack MD Attn: Adi shane,[address] [facility], [place], [address], [place] [facility] 4 10:22:33 Hyperlipide pasquale 86285586 Active 2023 Melida Jack MD Attn: Adi shane,[address] [facility], [place], [address], [place] [facility] 4 10:22:34 Essential hypertensio n 20032136 Active 2023 Melida Jack MD Attn: Adi shane,[address] [facility], [place], [address], [place] [facility] 4 10:22:35 Anxiety 29895488 Active 2023 Melida Jack MD Attn: Adi shane,[address] [facility], [place], [address], [place] [facility] 4 10:22:36 Obstructive sleep apnea syndrome 39445554 Active 2023 Melida Jack MD Attn: Adi shane,[address] [facility], [place], [address], [place] [facility] 4 10:22:42 Chronic rhinitis 21378506 Active 2023 Melida Jack MD Attn: Adi shane,[address] [facility], [place], [address], [place] [facility] 4 10:23:11 Fatigue 00900048 Active 2023 Melida Jack MD Attn: Adi shane,[address], [place], [address], [facility] 4 16:07:19 Vertigo 002601929 Active 2023 Melida Jack MD Attn: Adi shane,[address] [facility], [place], [address], [facility] - [facility] 4 16:07:22 Aortic valve stenosis 45592722 Active 2023 [email or web address] Melida Jack MD Attn: Adi shane,[address] [facility], [place], [address], [facility] - [facility] 4 16:08:58 Disorder of right sciatic nerve 9724490164163 02 Active 2024 PAM Swenson, [facility] 5 15:57:33 Problem Notes None recorded. Procedures Surgical History Date Name Laterality Status Provider Name and Address Organization Details Recorded Time Heart Surgery completed NOHEMI Yo [facility] 07/24/2023 10:08:33 Eye Surgery completed NOHEMI Yo [facility] 07/24/2023 10:08:39 Imaging Results None recorded. Procedure Notes None recorded. Medical Equipment None Reported. Allergies Allergen ID Allergen Name Allergen Category Reaction Reaction Severity Criticality Documentation Date Start Date Code Code System Note Provider Name and Address Organization Details Recorded Time 587310 codeine medicatio n headache Not available high 07/24/20232009 2670 RxNorm PAM Perry, [facility] 5 11:06:55 [id number] Substance with sulfonami de structure and antibacte rial mechanism of action (substanc e) medicatio n hives Not available high 07/24/20232009 18612 8003 SNOMED PAM Perry, [facility] 5 11:06:51 Medications Name Sig Start Date Stop Date Status Note LastModified by Organization Details LastModified Time losartan 50 mg tablet TAKE 1 TABLET BY MOUTH EVERY DAY 03/25 completed Not Available Not Available Not Available cyclobenzap rine 10 mg tablet Take 1 tablet twice a day by oral route for 10 days. 09/14 completed Not Available Not Available Not Available amoxicillin 500 mg capsule TAKE 4 CAPSULES BY MOUTH 30 MINUTES BEFORE DENTAL PROCEDURE 01/28 completed Not Available Not Available Not Available furosemide 40 mg tablet 07/23 completed Not Available Not Available Not Available metformin 500 mg tablet TAKE 2 TABLETS BY MOUTH TWICE DAILY active Not Available Not Available No t Available doxycycline hyclate 100 mg capsule TAKE 1 CAPSULE BY MOUTH TWICE DAILY FOR 7 DAYS 07/23 completed Not Available Not Available Not Available atorvastati n 10 mg tablet TAKE 1 TABLET 3 TIMES A WEEK MONDAY- AND MONDAY active Not Available Not Available No t Available amiodarone 200 mg tablet TAKE 1 TABLET BY MOUTH EVERY DAY 07/23 completed Not Available Not Available Not Available metoprolol succinate ER 50 mg tablet,exte nded release 24 hr TAKE 1 TABLET BY MOUTH DAILY active Not Available Not Available No t Available hydrocodone 5 mg-acetamin ophen 325 mg tablet Take 1 tablet 3 times a day by oral route as needed. 2024 active Not Available Not Available Not Avai lable potassium chloride ER 10 mEq tablet,exte nded release 07/23 completed Not Available Not Available Not Available amlodipine 5 mg tablet TAKE 1 TABLET BY MOUTH EVERY DAY active Not Available Not Available No t Available triamcinolo ne acetonide 0.1 % topical cream 07/29 completed Not Available Not Available Not Available citalopram 20 mg tablet TAKE 1 TABLET BY MOUTH EVERY DAY active Not Available Not Available No t Available meclizine 25 mg tablet Take 1 tablet every day by oral route at bedtime. 09/16 completed Not Available Not Available Not Available cyanocobala min (vit B-12) 1,000 mcg/mL injection solution Inject 1 mL every month by subcutane ous route. 2024 active Not Available Not Available Not Avai lable triamcinolo ne acetonide 55 mcg nasal spray aerosol ADMINISTE R 1 SPRAY INTRANASA LLY INTO EACH NOSTRIL TWICE DAILY active Not Available Not Available No t Available losartan 25 mg tablet TAKE 1 TABLET BY MOUTH EVERY DAY 03/25 completed Not Available Not Available Not Available hydrocortis one 2.5 % topical cream APPLY TOPICALLY TO THE AFFECTED AREA OF FACE AND EAR TWICE DAILY UNTIL GONE. RUB IN WELL 07/29 completed Not Available Not Available Not Available montelukast 10 mg tablet TAKE 1 TABLET BY MOUTH DAILY 2024 active Not Available Not Available Not Avai lable metoprolol succinate ER 25 mg tablet,exte nded release 24 hr TAKE 1 TABLET BY MOUTH DAILY active Not Available Not Available No t Available methylpredn isolone 4 mg tablets in a dose pack FOLLOW PACKAGE DIRECTION S 09/16 completed Not Available Not Available Not Available losartan 50 mg-hydrochl orothiazide 12.5 mg tablet TAKE 1 TABLET BY MOUTH DAILY 07/23 completed Not Available Not Available Not Available betamethaso ne dipropionat e 0.05 % topical ointment APPLY TOPICALLY AND RUB IN WELL TO THE AFFECTED AREA TWICE DAILY UNTIL CLEAR. 09/16 completed Not Available Not Available Not Available losartan 100 mg tablet TAKE 1 TABLET BY MOUTH DAILY active Not Available Not Available No t Available amoxicillin 875 mg-potassiu m clavulanate 125 mg tablet TAKE 1 TABLET BY MOUTH EVERY 12 HOURS FOR 10 DAYS 07/23 completed Not Available Not Available Not Available oxycodone 5 mg tablet 07/23 completed Not Available Not Available Not Available amiodarone 100 mg tablet TAKE 1 TABLET BY MOUTH EVERY DAY. 07/23 completed Not Available Not Available Not Available metoprolol tartrate 25 mg tablet 07/23 completed Not Available Not Available Not Available B Complex take 1 tablet/ca psule by mouth daily active Not Available Not Available No t Available Caltrate 600 plus D Take 1 by mouth daily 09/16 completed Not Available Not Available Not Available Vitals Date Recorded Body height Body mass index (BMI) Body weight Heart rate Oxygen saturation Oxygen saturation in Arterial blood by Pulse oximetry Systolic blood pressure Diastolic blood pressure Provider Name and Address Organization Details Last Updated DateTime 5 160.02 cm 35 kg/m2 55562.5 7 g 85 /min 96 % 96 % 148 mm[Hg] 72 mm[Hg] Jenni Olivier [place] - [facility] 5 14:19:31 Date Recorded Body height Body mass index (BMI) Body weight Heart rate Oxygen saturation Oxygen saturation in Arterial blood by Pulse oximetry Systolic blood pressure Diastolic blood pressure Provider Name and Address Organization Details Last Updated DateTime 5 160.02 cm 34.8 kg/m2 81569.5 4 g 76 /min 95 % 95 % 143 mm[Hg] 78 mm[Hg] Mindi Garcia MA [facility] 5 11:06:05 Date Recorded Body height Body mass index (BMI) Body weight Heart rate Oxygen saturation Oxygen saturation in Arterial blood by Pulse oximetry Systolic blood pressure Diastolic blood pressure Provider Name and Address Organization Details Last Updated DateTime 5 160.02 cm 35.5 kg/m2 63928.5 5 g 70 /min 98 % 98 % 150 mm[Hg] 80 mm[Hg] Jenni Olivier MA [facility] 5 14:04:43 Date Recorded Body height Body mass index (BMI) Body weight Heart rate Oxygen saturation Oxygen saturation in Arterial blood by Pulse oximetry Systolic blood pressure Diastolic blood pressure Provider Name and Address Organization Details Last Updated DateTime 5 160.02 cm 34.3 kg/m2 25737.5 6 g 75 /min 97 % 97 % 146 mm[Hg] 80 mm[Hg] Mindi Garcia [facility] 5 15:15:22 Social History Question Answer Notes LastModified by Organizat ion Details LastModified Time Tobacco Smoking Status Never Smoker Yanira Gomez Hans hanson, [facility] 07/24/2023 10:09:20 Are You Blind Or Do You Have Difficulty Seeing? No Information n ot available 11/27/2023 In The 14 Days Before Symptom Onset, Have You Had Close Contact With A Laboratory-confirm ed COVID-19 While That Case Was Ill? No Information n ot available 11/27/2023 In The 14 Days Before Symptom Onset, Have You Had Close Contact With A Person Who Is Under Investigation For COVID-19 While That Person Was Ill? No Information not available 11/27/2023 Have You Been To An Area Known To Be High Risk For COVID-19? No Information not available 11/27/2023 Are You Deaf Or Do You Have Serious Difficulty Hearing? No Information not available 11/27/2023 What Type Of Diet Are You Following? REGULAR Information n ot available 11/27/2023 Are There Any Guns Present In Your Home? No Information not available 11/27/2023 What Was The Date Of Your Most Recent Tobacco Screening? 09/16/2024 [email or web address] Information not available 09/16/2024 Do You Use Your Seat Belt Or Car Seat Routinely? Yes Information not available 11/27/2023 Do You Have Smoke And Carbon Monoxide Detectors In Your Home? Yes Information not available 11/27/2023 Do You Use Sunscreen Routinely? Yes Information not available 11/27/2023 Has Tobacco Cessation Counseling Been Provided? No Information not available 11/27/2023 Sex: Female Functional Status Question Answer Note LastModified by Organizat ion Details LastModified Time Do you use any illicit or recreational drugs? No Information not available 11/27/2023 Do you or have you ever used any other forms of tobacco or nicotine? No Information not available 11/27/2023 What is your level of alcohol consumption? None Information not available 11/27/2023 Are you currently employed? No Information not available 11/27/2023 Are you able to care for yourself? Yes Information not available 11/27/2023 What is your exercise level? None Information not available 11/27/2023 Mental Status Question Answer Note LastModified by Organization D etails LastModified Time Do you feel stressed (tense, restless, nervous, or anxious, or unable to sleep at night)? [id number] Information not available 11/27/2023 Family History Relationship Description Onset Age of this Age Resolved Age Notes LastModified by Organization Details LastModified Time Sister Hypertensive disorder [email or web address] Not available 07/03 10:09:29 Sister Hypercholest erolemia [email or web address] Not available 07/03 10:09:43 Sister Osteoporosis [email or web address] Not av ailable 07/24/2023 10:09:52 Notes:no new family history as of 11-27-2023 Medical History Condition Response Anxiety Disorder Y Diabetes Y High Blood Pressure Y Cancer Y High Cholesterol Y Gynecological HistoryNo gynecological history recorded. Obstetrics History GPAL:G 0 P 0 0 0 0 Immunizations Vaccine Type Date Status Note Provider Nam e and Address Organization Details Recorded Time Influenza, split virus, quadrivalent, preservative 7 completed Yanira Gomez, RMA null, [place] [facility] 07/24/2023 09:51:48 Influenza, split virus, quadrivalent, preservative 9 completed Yanira Gomez, [place] [facility] 07/24/2023 09:51:48 Influenza, split virus, quadrivalent, preservative 8 completed Yanira Gomez, [place] [facility] 07/24/2023 09:51:48 Influenza, MDCK, quadrivalent, PF 0 completed Yanira [place] [facility] 07/24/2023 09:51:48 zoster recombinant 9 completed Yanira Gomez[place] [facility] 07/24/2023 09:51:49 zoster recombinant 9 completed Yanira Gomez[place] [facility] 07/24/2023 09:51:49 Influenza, high-dose, quadrivalent, PF 3 completed Yanira Gomez [place] [facility] 07/24/2023 09:51:49 Influenza, adjuvanted, quadrivalent, PF 2 completed Yanira [place] [facility] 07/24/2023 09:51:49 COVID-19, mRNA, LNP-S, PF, 100 mcg/0.5mL dose or 50 mcg/0.25mL dose 1 completed Yanira Gomez [place] [facility] 07/24/2023 09:51:49 COVID-19, mRNA, LNP-S, PF, 100 mcg/0.5mL dose or 50 mcg/0.25mL dose 1 completed Yanira [place] [facility] 07/24/2023 09:51:49 COVID-19, mRNA, LNP-S, PF, 100 mcg/0.5mL dose or 50 mcg/0.25mL dose 1 completed Yanira [place] [facility] 07/24/2023 09:51:49 RSV, recombinant, protein subunit RSVpreF, adjuvant reconstituted, 0.5 mL, PF 3 completed Yanira [place] [facility] 07/24/2023 09:51:49 pneumococcal polysaccharide PPV23 8 completed Yanira [place] [facility] 07/24/2023 09:51:49 Tdap 1 completed Yanira [place] [facility] 07/24/2023 09:51:49 Pneumococcal conjugate PCV 13 7 completed Yanira [place] [facility] 07/24/2023 09:51:49 Influenza, split virus, trivalent, preservative 4 completed Yainra Gomez [place] [facility] 07/24/2023 09:51:49 Influenza, split virus, trivalent, preservative 2 completed Yanira [place] [facility] 07/24/2023 09:51:49 Influenza, split virus, trivalent, preservative 1 completed Yanira [place] [facility] 07/24/2023 09:51:49 Influenza, split virus, trivalent, preservative 3 completed Yanira [place] [facility] 07/24/2023 09:51:49 Influenza, split virus, trivalent, PF 7 completed Yanira [place] [facility] 07/24/2023 09:51:49 Influenza, split virus, trivalent, PF 5 completed Yanira [place] [facility] 07/24/2023 09:51:49 Influenza, split virus, trivalent, PF 6 completed Yanira [place] [facility] 07/24/2023 09:51:49 Influenza, split virus, quadrivalent, PF 8 completed NOHEMI Yo null, [facility] 07/24/2023 09:51:49 Influenza, high-dose, trivalent, PF 4 completed Jenni Olivier MA null, [facility] 07/01/2024 13:35:43 Pneumococcal conjugate PCV20, polysaccharide VQU654 conjugate, adjuvant, PF 4 completed Jenni Olivier MA null, [facility] 07/01/2024 14:16:07 Past Encounters Encounter ID Performer Location Encounter Start Date Encounter Closed Date Diagnosis/Indication Diagnosis SNOMED-CT Code Diagnosis ICD10 Code Diagnosis Note [id number] Melida Jack MD [facility] [place] [address] [place] [address] 07/24/2023 09:48:11 07/24/2023 10:39:54 Type 2 diabetes mellitus 92280056 E11.9 Hyperlipidemia 08763233 E78.5 Essential hypertension 67713584 I10 Anxiety 75365293 F41.9 Obstructiv e sleep apnea syndrome 15623485 G47.33 Chronic rhinitis 9553077 6 J31.0 Fatigue 63983748 R53.83 Vertigo 404155261 R42 Aortic valve stenosis 60 434065 I35.0 [id number] Melida Jack MD [facility] [employer] [facility] [place] [address] [place] [address] 08/07/2023 09:39:48 08/07/2023 10:06:39 Vitamin B12 deficiency (non anemic) 91489831 E53.8 [id number] Melida Jack MD [facility] [place] [address] [place] [address] 08/14/2023 09:46:49 08/14/2023 12:07:05 Vitamin B12 deficiency (non anemic) 75699697 E53.8 [id number] Melida Jack MD [facility] [employer] [facility] [place] [address] [place] [address] 08/21/2023 09:41:37 08/21/2023 17:35:13 Vitamin B12 deficiency (non anemic) 03009803 E53.8 [id number] Melida Jack MD [facility] [place] [facility] [address] [place] [address] 08/29/2023 09:41:47 08/29/2023 14:30:50 Vitamin B12 deficiency (non anemic) 48223110 E53.8 [id number] Melida Jack MD [facility] [address] [place] [address] 10/02/2023 10:03:19 10/02/2023 10:13:40 Vitamin B12 deficiency (non anemic) 61996299 E53.8 [id number] Melida Jack MD [facility] [address] [place] [address] 11/16/2023 10:11:35 11/16/2023 10:47:08 Vitamin B12 deficiency (non anemic) 25389768 E53.8 [id number] Melida Jack MD [facility] [place] [address] [place] [address] 11/27/2023 10:19:00 11/27/2023 11:16:02 Obesity 502633602 E66.8 Type 2 shelly betes mellitus 04751608 E11.9 Essential hypertension 66573341 I10 Chronic rhinitis 2500045 6 J31.0 Anxiety 43885724 F41.9 Hyperlipidemia 94645056 E78.5 Obstructiv e sleep apnea syndrome 50005257 G47.33 Aortic valve stenosis 60 591612 I35.0 TAVR [id number] Melida Jack MD [facility] [address] [place] [address] 12/19/2023 09:46:37 12/19/2023 15:51:15 Vitamin B12 deficiency (non anemic) 14993911 E53.8 [id number] Melida Jack MD [facility] [address] [place] [address] 01/18/2024 09:52:57 01/18/2024 10:32:42 Vitamin B12 deficiency (non anemic) 47295975 E53.8 [id number] Melida Jack MD [facility] [address] [place], [place] [address] 02/19/2024 09:46:23 02/19/2024 09:59:32 Cobalamin deficiency 107264147 E53.8 [id number] Melida Jack MD [facility] [address] [place], [place] [address] 03/25/2024 10:53:49 03/25/2024 11:37:19 Body mass index 30+ - obesity 304329474 Z68.35 Obesity 553896242 E66.9 Cobalamin deficiency 190 718834 E53.8 Essential hypertension 71431076 I10 Anxiety 71711369 F41.9 Chronic rhinitis 3485340 6 J31.0 Hyperlipidemia 15706060 E78.5 Obstructiv e sleep apnea syndrome 17670011 G47.33 Aortic valve stenosis 60 812422 I35.0 TAVR [id number] Melida Jack MD [facility] [address] [place], [place] [address] 04/25/2024 10:39:07 04/25/2024 10:50:20 Cobalamin deficiency 370218558 E53.8 [id number] Melida Jack MD [facility] [address] [place] [address] 05/27/2024 09:39:58 05/27/2024 10:11:18 Cobalamin deficiency 484626321 E53.8 [id number] Melida Jack MD [facility] [place] [address] [place] [address] 06/24/2024 09:41:39 06/24/2024 10:21:28 Cobalamin deficiency 427711220 E53.8 [id number] Melida Jack MD [facility] [place] [address] [place] [address] 07/01/2024 14:04:48 07/01/2024 15:02:27 Body mass index 30+ - obesity 982730904 Z68.35 Obesity 484059222 E66.9 Essential hypertension 58905804 I10 Hyperlipidemia 25669843 E78.5 Type 2 shelly betes mellitus 99726737 E11.9 [id number] Melida Jack MD [facility] [employer] [facility] [place] [address] [place] [address] 07/29/2024 10:54:18 07/29/2024 12:03:56 Body mass index 30+ - obesity 658446780 Z68.34 Obese class I 1814000738 67414 E66.811 Cobalamin deficiency 190 725984 E53.8 Essential hypertension 95435816 I10 Hyperlipidemia 18074357 E78.5 Anxiety 14414877 F41.9 Type 2 shelly betes mellitus 01560494 E11.9 [id number] Jack MD [facility] ([facility]) [address] [place] [address] 08/28/2024 13:56:26 08/28/2024 14:58:58 Obese class II 5897794910 28464 E66.812 Disorder o f right sciatic nerve 5846162837 12728 M54.31 Cobalamin deficiency 190 992007 E53.8 [id number] Melida Jack MD [facility] Personal Development Bureau e - [facility] [address] [place] [address] 09/16/2024 14:46:29 09/16/2024 16:01:44 Body mass index 30+ - obesity 299516738 Z68.34 Obese class I [id number] 86241 E66.811 Disorder o f right sciatic nerve [id number] 76619 M54.31 Essential hypertension [id number] I10 Health Concerns Section Related Observation LastModified by Organization Detai ls LastModified Time None Recorded Concern Status LastModified by Organization Details LastModified Time None Recorded Advance Directives Directive None Recorded Payers Insurance Date Sequence Insurance Name Policy Number Policy Torres Covered Member ID Torres Member ID Guarantor Name 07/01/2024 1 [place] - RHC - FQHC Kadi Mccann [id number] Kadi Mccann 09/13/2024 [place] Kadi Mccann [id number] Kadi Mccann 09/13/2024 2 [employer] PROTECT (MEDICARE SUPPLEMENT) Kadi Mccann [id number] Kadi Mccann 07/01/2024 1 [place] Kadi Mccann [id number] Kadi Mccann 09/13/2024 [place] FQHC Kadi Mccann [id number] Kadi Mccann Notes Date Note Type Note Provider Name and Address Organization Details Recorded Time 07/01/2024 text/html she does not lik e the amlodipine makes her heart race and beat out of her chest she has blood work for diabetes in her dyslipidemia taking her medicines for those without incident Melida Jack MD Attn: Accounting,[address] [facility], [place], [address], [facility] 07/06/2024 21:47:49 07/29/2024 text/html Needs a B12 shot anxiety is up a little bit has been had surgery does try to follow a low-fat diet watch her sugars trying to lose a little bit of weight and blood pressures are running a little bit high at home Mindi Garcia MA null, [place] - [place] 07/29/2024 17:13:04 08/28/2024 text/html Several days. No trauma. Pain lower back goes down right leg. Some numbness on the anterolateral thigh. Pretty severe. No bowel or bladder incontinence. Melida Jack MD Attn: Accounting, [address] [facility], [place], [address], [facility] - [facility] 09/08/2024 17:25:22 09/16/2024 text/html Blood pressure better back pain really bothering her can not even sleep at night Melida Jack MD Attn: Accounting[address] [facility], [place], [address], [facility] - [facility] 09/16/2024 22:47:05 OBGyn Episode No OBEpisode recorded.
--- OUTSIDE RECORDS SUMMARY | 2024-09-20 06:40 | XMS_ITS | Clinical Summary ---
Author Organization [facility] [address] Address [address] [place] [address] Care Team Providers Care Clinical Physician Assistant Name Role Phone Dread Jack MD Primary Care Provider [phone] Aleksandr Restrepo MD Unavailable [phone] Alessandra Carlos MD, Alonso Mcfarland Unavailable [phone] Allergies Active Allergy Reactions Criticality Noted Date [...] Hyperlipidemia 05/01/2018 Aortic stenosis 05/01/2018 Dyslipidemia 04/03/2018 Surgical History Surgery Date Site/Laterality Comments FOOT SURGERY CARPAL TUNNEL RELEASE Right CATARACT EXTRACTION, BILATERAL Right heel Medical History Medical History Date Comments Aortic valve stenosis Hypertension Hyperlipidemia Type 2 diabetes mellitus (HCC) Sleep apnea CPAP Anxiety Arthritis Basal cell carcinoma scalp Vertigo Covid 2020, 2021 Family History Medical History Relation Name Comments Cancer Father bone Leukemia Father Heart disease Mother Rheumatic fever Mother Relation Name Status Comments Father Mother Social History Tobacco Use Types Packs/Day Years [...] 11/07/2022 How often do you attend chur ch or pentecostalism services? More than 4 times per year 11/07/2022 Do you belong to any clubs o r organizations such as gnosticist groups, unions, fraternal or athletic groups, or [...] place to sleep or slept in a senior living (including now)? No 11/07/2022 Personal Safety Answer [...] on file Legal Sex Female 3:08 PM [employer] Gender Identity Not on file Sexual Orientation Not on file Obstetrics History Last Filed Vital Signs Vital Sign Reading [...] 12/12/2023 11:02 AM CDT Plan of Treatment Health Maintenance Due Date Last Done Comments Albumin Creatinine Ratio, Urine 1955 Colon Cancer Screening-Colonoscopy 1955 Depression Screening 1956 Hepatitis C Screening 1956 Dilated Eye Exam 1956 Foot Exam 1956 Lipid Panel 1956 Hepatitis B Screening 1974 Osteoporosis Screening-Bone Density Scan 05/13/2013 05/13/2011, 05/13/2011 Breast Cancer Screening-Mammogram 11/19/2020 11/20/2019, 11/20/2019, 11/05/2018, Additional history exists DTaP/Tdap/Td Vaccine (2 - Td or Tdap) 01/11/2021 01/11/2011 Well Visit 65+ 2021 Pneumococcal vaccine 65+ (3 of 3 - PCV20 or PCV21) 2023 2018, 12/01/2016 Hemoglobin A1C 05/03/2023 10/31/2022 Fall Risk Assessment 11/10/2023 11/09/2022 eGFR 11/10/2023 11/09/2022, 08/11/2022, 11/07/2022, Additional history exists Covid-19 Vaccine (4 - 2023-2 5 season) 2023 02/08/2021, 06/22/2020, 05/20/2020 Influenza Vaccine (Season Ended) 2024 12/21/2021, 01/26/2021, 12/30/2019, Additional history exists Zoster Vaccine Completed 09/26/2018, 06/27/2018 Medical Devices Implanted Type Area Personal Finance Instructor Device Identifier Shelf Expiration Date Model / Serial / Lot [employer] Resilia Leaflet Aortic Valve 23mm [id number] - [id number] - [id number] Implanted:Qty: 1 on 11/04/2022 by Aleksandr Restrepo MD at [facility] Prosthetic Valve N/A: Heart [employer] 05/31/2026 [id number] / [id number] / Procedures Procedure Name Priority Date/Time Associated [...] ORDERABLES Final R esult Performing Organization Address [facility] Co de Phone Number DK LOCO [address] [employer] [place], [place] [phone] * (ABNORMAL) Hemoglobin A1c (10/31/2022 10:42 AM CDT) Hgb A1C 7.6(H) 4.0 - 5.6 % DK LOCO Estimated Average Glucose 171 mg/dL DK LOCO Comment: The ADA recommends reporting an estimated Average Glucose (eAG) with all Hemoglobin A1c results using the equation derived from a study of 507 normal and diabetic adults. Minority populations were underrepresented and children were not included. (Diabetes Care 31:6516-1860, 2008). The eAG is not equivalent to a fasting glucose. Blood 10/31/2022 10:4 2 AM CDT 10/31/2022 10:49 AM CDT Aleksandr Restrepo MD LAB BLOOD ORDERABLES Final R rebecault Performing Organization Address [facility] Co de Phone Number DK LOCO [address] [place] [address] from Last 3 Months or Most Recently Relevant to Health Maintenance Insurance [place] [employer] [place] [employer] MEDICARE MEDICARE [facility] MEDICARE COMMERCIAL GENERIC MEDICARE Advance Directives For more information, please contact: [phone] Documents on File Type Date Recorded Patient Inside Sales Manager Expl anation ADVANCE DIRECTIVE 11/04/2022 7:00 AM Power of Toolroom Helper-Medical * Full Code (Latest Code Status on File) Date Activated Date Inactivated Comments 11/04/2022 12:52 PM 11/09/2022 7:54 PM Care Teams Clinical Physician Assistant Relationship Specialty Start Date End Date Dread Jack MD PCP - General Internal Medicine 11/07/22 Aleksandr Restrepo MD Surgeon Cardiothoracic Surgery 11/09/22 Alonso Aparicio Jr., MD [address] [place] [address] Consulting Physician Cardiovascular Disease 11/09/22
--- OUTSIDE RECORDS SUMMARY | 2024-09-20 06:40 | XMS_ITS | Continuity of Care Document ---
Author Organization [facility] Address [address] [place] [address] Phone Care Team Providers Care Guide Foreign Tour Name Role Phone Feroz Rhodes Unavailable Unavailable Procedures Procedure Date Eye Exam Established Pt Eye Exam & Treatment Refraction Eye Exam Established Pt Eye Exam & Treatment Refraction Advance Directives Directive Yes / No Effective Date File Name No Information Encounters Encounter Description Practice Location Reason(s) For Visit Diagnoses Date Provider Providers Copied on Encounter [facility], [address] [place] [address] [address], [place], [place], [id number], [place] tel:[phone] SEC [facility] No Information 2-[address] Meagan Redman. [facility] [address], [address], [place], [address], [place]. tel:[phone] [facility], [address] [place] [address] [address], [place], [place], [id number], [place] tel:[phone] [facility] [place] No Information [address] Meagan Redman. [address] [facility] [address], [place], [address], [place]. tel:[phone] [facility], [address] [place] [address] [address], [place], [place], [address], [place] tel:[phone] [facility] [place] No Information 6-200 8 Saldaña OD Arnold. [address], [address], [place], [address], [place]. tel:[phone] [facility], [address], [place], [place], [id number], [place] tel:[phone] SEC [facility] No Information 9-200 7 Meagan Redman. [address] [facility] , [address], [place], [address], [place]. tel:[phone] Family History Family Member Type Diagnosis Age At Onset No Information Payers Payer name Insurance type Covered democrat ID Authoriza tion(s) No Information Social History Type Description Quantity Date Captured Comments Sex Female Smoking Status No Information Chief Complaint And Reason For Visit No Information Reason For Referral Reason For Referral No Information History Of Present Illness Encounter Date Complaint History Of Prese nt Illness No Information Functional Status Date Functional Assessmen t No Information Instructions Date Instruction Additional Infor mation No Information Assessments Type Assessment Date No Information Patient Care Teams Name Effective Dates (start - stop) Status Members No Information
== END 2024-09-20 06:35 | disposition home or self-care (01) ==
PROVIDERS: PCP Internal Medicine; Visit Provider Internal Medicine
DX: M47.816 Spondylosis without myelopathy or radiculopathy, lumbar region (principal); M48.061 Spinal stenosis, lumbar region without neurogenic claudication; M48.07 Spinal stenosis, lumbosacral region; M43.16 Spondylolisthesis, lumbar region; M54.31 Sciatica, right side
CPT/HCPCS: 72148

== ENCOUNTER 2025-03-24 07:08 | Outpatient (CLI) | payer MEDICARE, SELFPAY ==
--- NOTE | ~2025-03-24 | MM_ITS ---
EXAMINATION: MM screening jordyn BI w joo HISTORY: Screening. TECHNIQUE: Craniocaudal and mediolateral oblique 3-D tomosynthesis images were obtained and synthetic 2-D images were generated. CAD analysis was submitted and interpreted. COMPARISON: 2023, 2022, and 2020. BREAST PARENCHYMAL COMPOSITION: Not Dense: The breasts are almost entirely fatty FINDINGS: No suspicious masses are seen. There are no suspicious calcifications. No unexplained architectural distortion is seen. There are no skin or nipple abnormalities identified. There is no adenopathy seen on the images submitted. IMPRESSION: No mammographic evidence to suggest malignancy is seen. The patient may return to screening mammography as per ACR guidelines. BI-RADS 1 - Negative. Reviewed, dictated and finalized at location C. [facility]
--- OUTSIDE RECORDS SUMMARY | 2025-03-24 07:11 | XMS_ITS | Continuity of Care Document ---
Author Organization [facility], [facility] [place] Address [address] [place] [address] Care Team Providers Care Block Sealer Name Role Phone ELIGIO STANTON Dough Cutting Machine Operator NITHIN PORTILLO Um Nurse [phone] MELIDA JACK Primary Care Provider [phone] LEIDY LUQUE Industrial Relations Worker Assessment No assessment recorded. Plan of Treatment Reminders Order Date Submit Date Provider Last Modified By Organization Details Last Modified Time Details Appointments ANY 15 2024 10:15A M Melida Jack MD Not available Not available Not available NURSE ONLY 2025 09:00A M Nurse Not available Not available Not available Lab None recorded. Referral None recorded. Procedures None recorded. Surgeries None recorded. Imaging None recorded. Medication Orders cyanocoba meka (vit B-12) 1,000 mcg/mL injection solution [address] [place], [place] [id number] [id number], [address] [place], [place], [phone], 02/03/2025 11:53:50 Patient TargetsNo targets recorded. Patient InstructionsNo instructions recorded. Reason for Referral None Reported. Problems Name Problem SNOMED Code Status Onset Date Resolution Date Notes Provider Name and Address Organization Details Recorded Time Type 2 diabetes mellitus 90009436 Active 2023 Melida Jack MD Attn: Adi g,[address] [facility], [place], [address] , [facility] 4 10:22:33 Hyperlipide pasquale 99485671 Active 2023 Melida Jack MD Attn: Adi acosta,[address] [facility], [place], [address], [place] [facility] 4 10:22:34 Essential hypertensio n 59755262 Active 2023 Melida Jack MD Attn: Adi acosta,[address] [facility], [place], [address], [place] [facility] 4 10:22:35 Anxiety 65349214 Active 2023 Melida Jack MD Attn: Adi acosta,[address] [facility], [place], [address], [place] [facility] 4 10:22:36 Obstructive sleep apnea syndrome 02887541 Active 2023 Melida Jack MD Attn: Adi shane,[address] [place], [address], [place] [facility] 4 10:22:42 Chronic rhinitis 03279197 Active 2023 Melida Jack MD Attn: Adi acosta,[address] [facility], [place], [address], [place] [facility] 4 10:23:11 Fatigue 09142787 Active 2023 Melida Jack MD Attn: Adi shane,[address] [facility], [place], [address], [place] [facility] 4 16:07:19 Vertigo 275363794 Active 2023 Melida Jack MD Attn: Adi shane,[address] [facility], [place], [address], [place] [facility] 4 16:07:22 Aortic valve stenosis 04207209 Active 2023 tavr Melida Jack MD Attn: Adi shane,[address] [facility], [place], [address], [place] [facility] 4 16:08:58 Disorder of right sciatic nerve 7412752438255 02 Active 2024 PAM Swenson, [facility] 5 15:57:33 Cobalamin deficiency 139650489 Active 2024 PAM Swenson, [facility] 5 09:57:56 Problem Notes None recorded. Procedures Surgical History Date Name Laterality Status Provider Name and Address Organization Details Recorded Time Heart Surgery completed Yanira Gomez NOHEMI [facility] 07/24/2023 10:08:33 Eye Surgery completed Yanira Gomez MICHELLEHans [facility] 07/24/2023 10:08:39 Imaging Results None recorded. Procedure Notes None recorded. Medical Equipment None Reported. Allergies Allergen ID Allergen Name Allergen Category Reaction Reaction Severity Criticality Documentation Date Start Date Code Code System Note Provider Name and Address Organization Details Recorded Time 952087 codeine medicatio n headache Not available high 07/24/20232009 2670 RxNorm PAM Perry, [facility] 5 11:06:55 083489 Substance with sulfonami de structure and antibacte rial mechanism of action (substanc e) medicatio n hives Not available [facility] 07/24/20232009 64279 8003 SNOMED PAM Perry, [facility] 5 11:06:51 Medications Name Sig Start Date Stop Date Status Note LastModified by Organization Details LastModified Time losartan 50 mg tablet TAKE 1 TABLET BY MOUTH EVERY DAY 03/25 completed Not Available Not Available Not Available cyclobenz aprine 10 mg tablet Take 1 tablet twice a day by oral route for 10 days. 09/14 completed Not Available Not Available Not Available amoxicill in 500 mg capsule TAKE 4 CAPSULES BY MOUTH 30 MINUTES BEFORE DENTAL PROCEDUR E 11/21 completed Not Available Not Available Not Available furosemid e 40 mg tablet 07/23 completed Not Available Not Available Not Available metformin 500 mg tablet TAKE 2 TABLETS BY MOUTH TWICE DAILY active Not Available Not Available No t Available doxycycli ne hyclate 100 mg capsule TAKE 1 CAPSULE BY MOUTH TWICE DAILY FOR 7 DAYS 07/23 completed Not Available Not Available Not Available atorvasta tin 10 mg tablet TAKE 1 TABLET BY MOUTH 3 TIMES A WEEK ON MON/MON/ MON active Not Available Not Available No t Available amiodaron e 200 mg tablet TAKE 1 TABLET BY MOUTH EVERY DAY 07/23 completed Not Available Not Available Not Available metoprolo l succinate ER 50 mg tablet,ex tended release 24 hr TAKE 1 TABLET BY MOUTH DAILY 11/[address] Jack changed her dosage to 100mg Not Available Not Available Not Available hydrocodo ne 5 mg-acetam inophen 325 mg tablet TAKE 1 TABLET BY MOUTH THREE TIMES DAILY NEEDED 11/21 completed Not Available Not Available Not Available metoprolo l succinate ER 100 mg tablet,ex tended release 24 hr TAKE 1 TABLET BY MOUTH EVERY DAY active Not Available Not Available No t Available potassium chloride ER 10 mEq tablet,ex tended release 07/23 completed Not Available Not Available Not Available amlodipin e 5 mg tablet TAKE 1 TABLET BY MOUTH EVERY DAY 07/06 completed Not Available Not Available Not Available triamcino lone acetonide 0.1 % topical cream 07/29 completed Not Available Not Available Not Available citalopra m 20 mg tablet TAKE 1 TABLET BY MOUTH EVERY DAY active Not Available Not Available No t Available meclizine 25 mg tablet Take 1 tablet every day by oral route at bedtime. 09/16 completed Not Available Not Available Not Available cephalexi n 500 mg capsule Take 1 capsule every 6 hours by oral route for 7 days. 10/30 completed Not Available Not Available Not Available cyanocoba meka (vit B-12) 1,000 mcg/mL injection solution Inject 1 mL every month by subcutan eous route. 2024 active Not Available Not Available Not Avai lable triamcino lone acetonide 55 mcg nasal spray aerosol ADMINIST ER 1 SPRAY INTRANAS ALLY INTO EACH NOSTRIL TWICE DAILY active Not Available Not Available No t Available losartan 25 mg tablet TAKE 1 TABLET BY MOUTH EVERY DAY 03/25 completed Not Available Not Available Not Available hydrocort isone 2.5 % topical cream APPLY TOPICALL Y TO THE AFFECTED AREA OF FACE AND EAR TWICE DAILY UNTIL GONE. RUB IN WELL 07/29 completed Not Available Not Available Not Available monteluka st 10 mg tablet TAKE 1 TABLET BY MOUTH DAILY 2024 active Not Available Not Available Not Avai lable metoprolo l succinate ER 25 mg tablet,ex tended release 24 hr TAKE 1 TABLET BY MOUTH DAILY 11/[address] Jack has increase d patient to 100mg Not Available Not Available Not Available methylpre dnisolone 4 mg tablets in a dose pack FOLLOW PACKAGE DIRECTIO NS 09/16 completed Not Available Not Available Not Available losartan 50 mg-hydroc hlorothia zide 12.5 mg tablet TAKE 1 TABLET BY MOUTH DAILY 07/23 completed Not Available Not Available Not Available betametha sone dipropion ate 0.05 % topical ointment APPLY TOPICALL Y AND RUB IN WELL TO THE AFFECTED AREA TWICE DAILY UNTIL CLEAR. 09/16 completed Not Available Not Available Not Available losartan 100 mg tablet TAKE 1 TABLET BY MOUTH DAILY active Not Available Not Available No t Available amoxicill in 875 mg-potass ium clavulana te 125 mg tablet TAKE 1 TABLET BY MOUTH EVERY 12 HOURS FOR 10 DAYS 07/23 completed Not Available Not Available Not Available oxycodone 5 mg tablet 07/23 completed Not Available Not Available Not Available amiodaron e 100 mg tablet TAKE 1 TABLET BY MOUTH EVERY DAY. 07/23 completed Not Available Not Available Not Available metoprolo l tartrate 25 mg tablet 07/23 completed Not Available Not Available Not Available B Complex take 1 tablet/c apsule by mouth daily active Not Available Not Available No t Available Caltrate 600 plus D Take 1 by mouth daily 09/16 completed Not Available Not Available Not Available Vitals None Recorded Social History Question Answer Notes LastModified by Organizat ion Details LastModified Time Tobacco Smoking Status Never Smoker NOHEMI Yo null, [place] - [facility] 07/24/2023 10:09:20 Are You Blind Or Do [...] Date Of Your Most Recent Tobacco Screening? 11/21/2024 [email or web address] Information not available 11/21/2024 Do You Use Your Seat Belt Or [...] 11/27/2023 Are you able to care for yourself independently? Yes Information not available 11/27/2023 What is your exercise level? None Information not available 11/27/2023 Mental Status Question Answer Note LastModified by Organization D etails LastModified Time Do you feel stressed (tense, restless, nervous, or anxious, or unable to sleep at night)? [id number] Information not available 11/27/2023 Family History Relationship [...] split virus, quadrivalent, preservative 7 completed Yanira Gomez RMA [place], [place] [facility] 07/24/2023 09:51:48 Influenza, split virus, quadrivalent, preservative 9 completed Yanira [place] [facility] 07/24/2023 09:51:48 Influenza, split virus, quadrivalent, preservative 8 completed Yanira [place] [facility] 07/24/2023 09:51:48 Influenza, MDCK, quadrivalent, PF 0 completed Yanira [place] [facility] 07/24/2023 09:51:48 zoster recombinant 9 completed Yanira [place] [facility] 07/24/2023 09:51:49 zoster recombinant 9 completed MICHELLE [place]A [place] [facility] 07/24/2023 09:51:49 Influenza, high-dose, quadrivalent, PF 3 completed Yanira [place] [facility] 07/24/2023 09:51:49 Influenza, adjuvanted, quadrivalent, PF 2 completed [place] [facility] 07/24/2023 09:51:49 COVID-19, mRNA, LNP-S, PF, 100 mcg/0.5mL dose or 50 mcg/0.25mL dose 1 completed MICHEL[place] [facility] 07/24/2023 09:51:49 COVID-19, mRNA, LNP-S, PF, 100 mcg/0.5mL dose or 50 mcg/0.25mL dose 1 completed Yanira [place] [facility] 07/24/2023 09:51:49 COVID-19, mRNA, LNP-S, PF, 100 mcg/0.5mL dose or 50 mcg/0.25mL dose 1 completed Yanira [place] [facility] 07/24/2023 09:51:49 RSV, recombinant, protein subunit RSVpreF, adjuvant reconstituted, 0.5 mL, PF 3 completed [place] [facility] 07/24/2023 09:51:49 pneumococcal polysaccharide PPV23 8 completed Yanira [place] [facility] 07/24/2023 09:51:49 Tdap 1 completed Yanira Gomez RMHans [place] [facility] 07/24/2023 09:51:49 Pneumococcal conjugate PCV 13 7 completed [place] [facility] 07/24/2023 09:51:49 Influenza, split virus, trivalent, preservative 4 completed Yanira [place] [facility] 07/24/2023 09:51:49 Influenza, split virus, trivalent, preservative 2 completed Yanira [place] [facility] 07/24/2023 09:51:49 Influenza, split virus, trivalent, preservative 1 laly [place] [facility] 07/24/2023 09:51:49 Influenza, split virus, trivalent, preservative 3 completed Yanira [place] [facility] 07/24/2023 09:51:49 Influenza, split virus, trivalent, PF 7 laly Gomez, RMA null, [facility] 07/24/2023 09:51:49 Influenza, split virus, trivalent, PF 5 completed Yanira Gomez RMA null, [place] - [facility] 07/24/2023 09:51:49 Influenza, split virus, trivalent, PF 6 completed Yanira Gomez RMA null, [facility] 07/24/2023 09:51:49 Influenza, split virus, quadrivalent, PF 8 completed Yanira Gomez RMA null, [facility] 07/24/2023 09:51:49 Influenza, high-dose, trivalent, PF 4 completed Jenni Olivier MA null, [facility] 07/01/2024 13:35:43 Pneumococcal conjugate PCV20, polysaccharide [id number] conjugate, adjuvant, PF 4 completed Jenni Olivier MA null, [facility] 07/01/2024 14:16:07 Past Encounters Encounter ID Performer Location Encounter Start Date Encounter Closed Date Diagnosis/Indication Diagnosis SNOMED-CT Code Diagnosis ICD10 Code Diagnosis IMO Codes Diagnosis Note [id number] Melida Jack MD [facility] [place] [address] [place] [address] 02/03/2025 10:01:49 02/03/2025 11:44:03 Cobalamin deficiency 624870671 E53.8 Health Concerns Section Related Observation LastModified by Organization Detai ls LastModified Time None Recorded Concern Status LastModified by Organization Details LastModified Time None Recorded Payers Encounter Date Sequence Insurance Name Policy Number Policy Torres Covered Member ID Torres Member ID Guarantor Name 02/03/2025 2 [employer] (MEDICARE SUPPLEMENT) Kadi Mccann [id number] Kadi Mccann 02/03/2025 1 [place] Kadi Mccann [id number] Kadi Mccann OBGyn Episode No OBEpisode recorded.
--- OUTSIDE RECORDS SUMMARY | 2025-03-24 07:11 | XMS_ITS | Clinical Summary ---
Author Organization [facility] Address [address] [place] [address] Care Team Providers Care Volunteer Specialist Name Role Phone Dread Jack MD Primary Care Provider [phone] Source Comments [facility],non-owned Affiliates and Associated Physician Practices is amultiple site organization consisting of ambulatory clinics and hospital sitesin [place], [place], [place] and [place]. This disclosure is being madepursuant to the Care Everywhere program and may not contain all information available regarding this patient. Last updated 17.[facility] Social History Tobacco Use Types Packs/Day Years Used Date Smoking Tobacco: Never Assessed Comments Unknown Sex and Gender Information Value Date Recorded Sex Assigned at Not on file Legal Sex Female 8:00 AM CDT Gender Identity Not on file Sexual Orientation Not on file Plan of Treatment Health Maintenance Due Date Last Done Comments BONE DENSITY TESTING 1955 COLOGUARD (AGES 45-75) - COL ON CA SCREENING 1956 COLON MONITORING 1956 COLONOSCOPY - COLON CA SCREENING 1956 CT COLONOGRAPHY - COLON CA SCREENING 1956 Colorectal Cancer Screening 1956 FIT - COLON CA SCREENING 1956 FLEX SIG - COLON CA SCREENING 1956 LIPID TESTING 1956 MAMMOGRAM 1956 MEDICARE AWV 12 MONTHS 1956 HEPATITIS C SCREENING 03/16/1974 DTAP/TDAP/TD VACCINES (1 - Tdap) 1975 PNEUMOCOCCAL VACCINE 50+ (1 of 1 - PCV) 2006 ZOSTER VACCINE (1 of 2) 2006 DEPRESSION SCREENING 04/03/2024 COVID-19 VACCINE (1 - 2024-2 6 season) 2024 INFLUENZA VACCINE (#1) 2024 Respiratory Syncytial Virus (RSV) Vaccine Pt: or over 60 yrs (1 - 1-dose 75+ series) 2031 HEPATITIS B VACCINE Aged Out No longe r eligible based on patient's age to complete this topic HIB VACCINE Aged Out No longer eligi ble based on patient's age to complete this topic HPV VACCINE Aged Out No longer eligi ble based on patient's age to complete this topic MENINGOCOCCAL (Group B) VACC INE SHARED DECISION-MAKING Aged Out No longer eligibl e based on patient's age to complete this topic MENINGOCOCCAL GROUPS A/C/Y/W VACCINE Aged Out No longer eligible b ased on patient's age to complete this topic Insurance MEDICARE MEDICARE SUPPLEMENT PAYOR GENERIC Care Teams Volunteer Specialist Relationship Specialty Start Date End Date Dread Jack MD PCP - General 12/18/20
--- OUTSIDE RECORDS SUMMARY | 2025-03-24 07:11 | XMS_ITS | Encounter Summary ---
Author Organization [facility] Address [address] [place] [address] Care Team Providers Care Manager Surgical Name Role Phone Dread Jack MD Primary Care Provider [phone] Encounter Details Date Type Department Care Team (Late st Contact Info) Description 11/05/2024 Lab Requisition [facility] - DermPath Lab [address] [place] [id number] Lloyd Hector MD [address] [place] [address] Social History Tobacco Use Types Packs/Day Years Used Date Smoking Tobacco: Never Assessed Comments Unknown Sex and Gender Information Value Date Recorded Sex Assigned at Not on file Legal Sex Female 8:00 AM CDT Gender Identity Not on file Sexual Orientation Not on file documented as of this encounter Plan of Treatment Not on file documented as of this encounter Procedures Procedure Name Priority Date/Time Associated Diagnosis Comments DERMATOPATHOLOGY Routine 11/04/2024 12:0 0 AM CDT documented in this encounter Results * DERMATOPATHOLOGY (11/04/2024 12:00 AM CDT) Case Report Dermatopathology Report Case: [id number] Authorizing Provider: Lloyd eHctor MD Collected: 11/04/2024 12:00 AM Ordering Location: [facility] - Received: 11/05/2024 09:04 AM DermPath Lab Pathologist: Becca Mejia MD Specimen: Skin, left face 5:07 PM CDT DERMATOPATHOLOGY LABORATORY Final Diagnosis Specimen A. 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 The specimen consists of a shave biopsy measuring 2x1x1 mm. Jar 0. 5:07 PM CDT DERMATOPATHOLOGY LABORATORY Microscopic Description Specimen A. SKIN, left face: There is tissue artifact. The dermis shows a proliferation of elastic fibers in the superficial dermis that are increased in thickness. Tumor is not seen on routine sections or BerEP4 stained sections. Additional deeper sections were obtained and reviewed. COMMENT: Given the superficial nature of the biopsy specimen, a deeper dermal process cannot be excluded. 5:07 PM CDT DERMATOPATHOLOGY LABORATORY Disclaimer An external and internal positive and negative controls are appropriate for the histochemical, immunohistochemical and immunofluorescence stain(s) in this case (if any), except where stated explicitly. The performance characteristics of the stain(s) cited in this report were developed and its performance characteristic determined by the Dermatopathology Laboratory at [facility], directed by Dr. Feroz Adame. These tests need not be, and therefore are not, approved by the [place] Food and Drug Administration. The tests are used for clinical purposes. Billing Codes Specimen Charges Stain Charges 25319 1 12574 1 5:07 PM CDT DERMATOPATHOLOGY LABORATORY Embedded Images 5:07 PM CDT DERMATOPATHOLOGY LABORATORY Pathology/Cytolog y TISSUE SPECIMEN FROM SKIN / Unknown 11/04/2024 11/05/2024 9:04 AM CDT us Lloyd Hector MD LAB - PATHOLOGY/CYTOLOGY ORDERAB LES Final Result DERMATOPATHOLOGY LABORATORY [facility] - Department of Dermatology [address] [place] [address], [facility] [phone] documented in this encounter Visit Diagnoses Not on filedocumented in this encounter Care Teams Manager Surgical Relationship Specialty Start Date End Date Dread Jack MD PCP - General 12/18/20 documented as of this encounter
--- OUTSIDE RECORDS SUMMARY | 2025-03-24 07:11 | XMS_ITS | Clinical Summary ---
Author Organization [facility] [place] [address] Address [address] [place] [address] Care Team Providers Care Production Supervisor Trainee Name Role Phone Dread Jack MD Primary Care Provider [phone] Aleksandr Restrepo MD Unavailable [phone] Alessandra Carlos MD, Alonso Mcfarland Unavailable [phone] Allergies Active Allergy Reactions Criticality Noted Date [...] 1 capsule by mouth daily Active calcium carbonate-vitam in D3 (Caltrate with Vitamin D3) 1,500 mg (600mg elemental) -800 unit per tablet Take 1 tablet by mouth daily 9 Active fluticasone propionate (FLONASE) 50 mcg/actuation nasal spray Administer 2 sprays into each nostril daily as needed 7 Active losartan (COZAAR) 50 mg tablet Take [...] stenosis Hypertension Hyperlipidemia Type 2 diabetes mellitus Sleep apnea CPAP Anxiety Arthritis Basal cell carcinoma scalp Vertigo Covid 2020, 2021 Family History Medical History Relation Name Comments Cancer Father bone Leukemia Father Heart disease Mother Rheumatic fever Mother Relation Name Status Comments Father Mother Social History Tobacco Use Types Packs/Day Years Used Date Smoking Tobacco: Never Tobacco Cessation:Counseling Given: Not Answered Social Connection and Isolation Panel Answer Date Recorded In a typical week, how many times do you talk on the phone with family, friends, or neighbors? More than three times a week 11/07/2022 How often do you get togethe r with friends or relatives? More than three times a week 11/07/2022 How often do you attend chur or orthodox services? 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 Gender Identity Not on file Sexual Orientation Not on file Last Filed Vital Signs Vital Sign Reading Time Taken Comments Blood Pressure 131/78 12/10/2024 10:34 AM CDT Pulse 92 12/10/2024 10:34 AM CDT Temperature 37 C (98.6 F) 11/09/2022 11:38 AM CDT Respiratory Rate 16 12/10/2024 10:34 AM CDT Oxygen Saturation 97% 12/10/2024 10:34 AM CDT Inhaled Oxygen Concentration - - Weight 87.5 kg (193 lb) 12/10/2024 10:34 AM CDT Height 160 cm (5' 3) 12/10/2024 10:34 AM CDT Body Mass Index 34.19 12/10/2024 10:34 AM CDT Plan of Treatment Health Maintenance [...] Risk Assessment 11/10/2023 11/09/2022 eGFR 11/10/2023 11/09/2022, 08/0 11/2022, 11/07/2022, Additional history exists Covid-19 Vaccine (4 - 2024-2 6 season) 2024 02/08/2021, 06/22/2020, 05/20/2020 Influenza Vaccine (#1) 2024 , 12/21/2021, 01/26/2021, Additional history exists Zoster Vaccine Completed 09/26/2018, 06/27/2018 Medical Devices Implanted Type Area Associate Research Scientist Device Identifier Shelf Expiration Date Model / Serial / Lot [employer] Inspiris Resilia Leaflet Aortic Valve 23mm [id number] - [id number] - [id number] Implanted:Qty: 1 on 11/04/2022 by Aleksandr Restrepo MD at [facility] Prosthetic Valve N/A: Heart [employer] 05/31/2026 [id number] / [id number] / Procedures Procedure Name Priority Date/Time Associated [...] of Race in Diagnosing Kidney Disease, JASN 202). The CKD-EPI equation should not be used for patients with unstable renal function and has not been validated in children and those over 70. Current interpretive data was last reviewed 2021. Blood 11/09/2022 5:41 AM CDT 11/09/2022 5:46 AM CDT us Aleksandr Restrepo MD LAB BLOOD ORDERABLES Final R esult [facility] [address] [place] [address] * (ABNORMAL) Hemoglobin A1c (10/31/2022 10:42 AM CDT) Hgb A1C 7.6(H) 4.0 - 5.6 % [facility] Estimated Average Glucose 171 mg/dL [facility] Comment: The ADA recommends reporting an estimated Average Glucose (eAG) with all Hemoglobin A1c results using the equation derived from a study of 507 normal and diabetic adults. Minority populations were underrepresented and children were not included. (Diabetes Care 31:0325-8644, 2008). The eAG is not equivalent to a fasting glucose. Blood 10/31/2022 10:4 2 AM CDT 10/31/2022 10:49 AM CDT us Aleksandr Restrepo MD LAB BLOOD ORDERABLES Final R esult [facility] [address] Department [place] [address] from Last 3 Months or Most Recently Relevant to Health Maintenance Insurance [employer] [place] [employer] MEDICARE MEDICARE [facility] INSURANCE MEDICARE COMMERCIAL GENERIC MEDICARE Advance Directives For more information, please contact: [phone] Documents on File Type Date Recorded Patient Coagulant Dipper Expl anation ADVANCE DIRECTIVE 11/04/2022 7:00 AM Power of Forest Firefighter-Medical * Full Code (Latest Code Status on File) Date Activated Date Inactivated Comments 11/04/2022 12:52 PM 11/09/2022 7:54 PM Care Teams Production Supervisor Trainee Relationship Specialty Start Date End Date Dread Jack MD PCP - General Internal Medicine 11/07/22 Aleksandr Restrepo MD Surgeon Cardiothoracic Surgery 11/09/22 Alonso Aparicio Jr., MD [facility] [place] [address] Consulting Physician Cardiovascular Disease 11/09/22
--- OUTSIDE RECORDS SUMMARY | 2025-03-24 07:11 | XMS_ITS | Continuity of Care Document ---
Author Organization [facility] Address [address] [place] [address] Care Team Providers Care Clothing Sales Assistant Name Role Phone ELIGIO STANTON Metabolic Specialist NITHIN PORTILLO Rehab Manager [phone] MELIDA JACK Primary Care Provider [phone] LEIDY LUQUE Cut Off Machine Helper Assessment No assessment recorded. Plan of Treatment [...] (vit B-12) 1,000 mcg/mL injection solution 2024 025 Not available 01/02/2025 16:17:25 Patient TargetsNo targets recorded. Patient InstructionsNo instructions recorded. Reason for Referral None Reported. Problems Name Problem SNOMED Code Status Onset Date Resolution Date Notes Provider Name and Address Organization Details Recorded Time Type 2 diabetes mellitus 36392165 Active 2023 Melida Jack MD Attn: Adi shane,[address] [facility], [place], [address], [facility] 10:22:33 Hyperlipide pasquale 35720916 Active 2023 Melida Jack MD Attn: Adi shane,[address] [facility], [place], [address], [place] [facility] 4 10:22:34 Essential hypertensio n 13918871 Active 2023 Melida Jack MD Attn: Adi shane,[address] [facility], [place], [address], [place] [facility] 4 10:22:35 Anxiety 33960948 Active 2023 Melida Jack MD Attn: Adi shane,[address] [facility], [place], [address], [place] [facility] 4 10:22:36 Obstructive sleep apnea syndrome 20255897 Active 2023 Melida Jack MD Attn: Adi shane,[address] [place], [address], [place] [facility] 4 10:22:42 Chronic rhinitis 61535569 Active 2023 Melida Jack MD Attn: Adi shane,[address] [place], [address], [place] [facility] 4 10:23:11 Fatigue 48468503 Active 2023 Melida Jack MD Attn: Adi shane,[address] [place], [address], [place] [facility] 4 16:07:19 Vertigo 692515649 Active 2023 Melida Jack MD Attn: Adi shane,[address] [place], [address], [place] [facility] 4 16:07:22 Aortic valve stenosis 11702197 Active 2023 tavr Melida Jack MD Attn: Adi acosta,[address] [place], [address], [place] [facility] 4 16:08:58 Disorder of right sciatic nerve 1109162636937 02 Active 2024 Rory Winn MA null, [place] - [facility] 5 15:57:33 Cobalamin deficiency 740572496 Active 2024 Rory Winn MA null, [facility] 5 09:57:56 Problem Notes None recorded. Procedures Surgical History Date Name Laterality Status Provider Name and Address Organization Details Recorded Time Heart Surgery completed Yanira Gomez Hans [facility] 07/24/2023 10:08:33 Eye Surgery completed Yanira Gomez [facility] 07/24/2023 10:08:39 Imaging Results None recorded. Procedure Notes None recorded. Medical Equipment None Reported. Allergies Allergen ID Allergen Name Allergen Category Reaction Reaction Severity Criticality Documentation Date Start Date Code Code System Note Provider Name and Address Organization Details Recorded Time 16990605 codeine medicatio n headache Not available [facility] 07/24/20232009 2670 RxNorm Mindi Garcia MA null, [facility] 5 11:06:55 008905 Substance with sulfonami de structure and antibacte rial mechanism of action (substanc e) medicatio n hives Not available [facility] 07/24/20232009 58434 8003 SNOMED PAM Perry, [facility] 5 11:06:51 Medications Name Sig Start Date [...] BY MOUTH 3 TIMES A WEEK ON MON/WED/ FRI active Not Available Not Available No t [...] Never Smoker NOHEMI Yo null, [place] [facility] 07/24/2023 10:09:20 Are You Blind Or Do [...] anxious, or unable to sleep at night)? [id number] Information not available 11/27/2023 Family History Relationship [...] 07/24/2023 09:51:49 zoster recombinant 9 completed Yanira Gomez RMA [...] PF 8 completed Yanira Gomez RMA null, [place] [facility] 07/24/2023 09:51:49 Influenza, high-dose, trivalent, PF 4 completed Jenni Olivier MA null, [place] [facility] 07/01/2024 13:35:43 Pneumococcal conjugate PCV20, polysaccharide EXI112 conjugate, adjuvant, PF 4 completed Jenni Olivier [place] null, [place] [facility] 07/01/2024 14:16:07 Past Encounters Encounter ID Performer Location Encounter Start Date Encounter Closed Date Diagnosis/Indication Diagnosis SNOMED-CT Code Diagnosis ICD10 Code Diagnosis IMO Codes Diagnosis Note [id number] Melida Jack MD [facility] [employer] [facility] [place] [address] [place] [address] 12/03/2024 09:57:36 12/03/2024 14:00:20 Cobalamin deficiency 774016346 E53.8 566881 [id number] Melida Jack MD [facility] [employer] [facility] [place] [address] [place] [address] 01/02/2025 10:01:34 01/02/2025 13:29:11 Cobalamin deficiency 632019421 E53.8 506160 Health Concerns Section Related Observation LastModified by Organization Detai ls LastModified Time None Recorded Concern Status LastModified by Organization Details LastModified Time None Recorded Payers Encounter Date Sequence Insurance Name Policy Number Policy Torres Covered Member ID Torres Member ID Guarantor Name 01/02/2025 2 [employer] (MEDICARE SUPPLEMENT) Kadi Mccann [id number] Kadi Mccann 01/02/2025 1 [place] Kadi Mccann [id number] Kadi Mccann OBGyn Episode No OBEpisode recorded.
--- OUTSIDE RECORDS SUMMARY | 2025-03-24 07:11 | XMS_ITS | Clinical Summary ---
Author Organization [facility] Address [address] [place] [address] Care Team Providers Care Powderman Name Role Phone Dread Jack MD Primary Care Provider [phone] Allergies Active Allergy Reactions Criticality Noted Date [...] by mouth. Active fluticasone (FLONASE) 50 mcg/spray [place], Suspension 7 Active montelukast (SINGULAIR) 10 mg [...] flu vaccine quadrivalent 36mos up,PF, (Afluria Qd 2018-,3yr up,,PF,) 60 mcg (15 mcg x 4)/0.5 [...] on file Legal Sex Female 5:38 AM RESIDENTIAL REAL ESTATE ASSISTANT Gender Identity Not on file Sexual Orientation [...] PCV21) 2023 2018, 12/01/2016 INFLUENZA VACCINE (#1) 2024 8, 01/04/2017, 02/02/2016, Additional history exists RSV VACCINE (60+ or ) (1 - 1-dose 75+ series) 2031 Procedures Procedure Name Priority Date/Time Associated Diagnosis Comments MAMMO 3D KEVIN SCREEN BILAT W OR WO CAD Routine 11/20/2019 8:37 AM CDT Breast cancer screening by mammogram XR DEXA BONE DENSITY AXIAL 1 OR MORE SITES Routine 05/13/2011 8:38 AM RESIDENTIAL REAL ESTATE ASSISTANT Special screening for osteoporosis from Last 3 [...] 1 OR MORE SITES (05/13/2011 8:38 AM RESIDENTIAL REAL ESTATE ASSISTANT) Anatomical Region Laterality Modality Digital Radiogra phy 05/13/2011 8:27 AM RESIDENTIAL REAL ESTATE ASSISTANT Narrative 05/13/2011 9:25 AM RESIDENTIAL REAL ESTATE ASSISTANT XR DEXA BONE DENSITY AXIAL 1 OR MORE SITES HISTORY: 56 yo F with postmenopausal symptoms on calcium supplementation needing evaluation for osteoporosis. PROCEDURE: Using a [employer] dual energy x-ray absorptiometry system, the patient's [...] needing evaluation for osteoporosis. PROCEDURE: Using a [employer] dual energy x-ray absorptiometry system, the patient's [...] Most Recently Relevant to Health Maintenance Insurance [facility] Care Teams Powderman Relationship Specialty Start Date End Date Dread Jack MD PCP - General Internal Medicine 04/16/10
--- OUTSIDE RECORDS SUMMARY | 2025-03-24 07:11 | XMS_ITS | Data Portability ---
Author Organization [facility] Address [address] [place] [address] Care Team Providers Care Environmental Health Safety Engineer Name Role Phone ELIGIO STANTON Plastics Supervisor NITHIN PORTILLO Banquet Houseperson [phone] MELIDA JACK Primary Care Provider [phone] LEIDY LUQUE Alum Mixer Assessment Encounter Date Assessment Date Assessment LastModified by Organization Details LastModified Time 11/21/2024 11/21/2024 We will continue current therapy increase metoprolol succinate ER 100 mg daily see me in 4 months [email or web address] Not available 12/01/2024 17:32:06 Plan of Treatment Reminders Order Date Submit [...] B-12) 1,000 mcg/mL injection solution 2024 025 [id number], [address], [place], [place], [id number], 03/10/2025 11:08:07 cyanocoba meka (vit B-12) 1,000 mcg/mL injection solution 2024 025 [email or web address] [facility] #04912, [address], [place], [id number], 02/03/2025 11:53:50 cyanocoba meka (vit B-12) 1,000 mcg/mL injection solution 2024 025 [email or web address] Not available 01/02/2025 16:17:25 cyanocoba meka (vit B-12) 1,000 mcg/mL injection solution 2024 025 [email or web address] [facility]67, [address], [place], [id number], 12/03/2024 17:27:56 metoprolo l succinate ER 100 mg tablet,ex tended release 24 hr 2024 025 [email or web address] [facility] #55108, [address], [place], [id number], 11/21/2024 13:25:19 Patient TargetsNo targets recorded. Patient Instructions Encounter Date Encounter Id Patient Instructions Last Modified By Organization Details Last Modified Time 11/21/2024 [id number] A healthy lifestyle: care instructions Not available 11/21/2024 13:25:19 Reason for Referral None Reported. Problems Name Problem SNOMED Code Status Onset Date Resolution Date Notes Provider Name and Address Organization Details Recorded Time Type 2 diabetes mellitus 64651570 Active 2023 Melida Jack MD Attn: Adi shane,[address] [place], [address], [facility] 4 10:22:33 Hyperlipide pasquale 41853772 Active 2023 Melida Jack MD Attn: Adi shane,[address] [place], [address], [facility] 4 10:22:34 Essential hypertensio n 54247277 Active 2023 Melida Jack MD Attn: Adi shane,[address] [place], [address], [place] [facility] 4 10:22:35 Anxiety 82875102 Active 2023 Melida Jack MD Attn: Adi shane,[address] [place], [address], [place] [facility] 4 10:22:36 Obstructive sleep apnea syndrome 17408964 Active 2023 Melida Jack MD Attn: Adi shane,[address] [place], [address], [place] [facility] 4 10:22:42 Chronic rhinitis 21865780 Active 2023 Melida Jack MD Attn: Adi shane,[address] [place], [address], [place] [facility] 4 10:23:11 Fatigue 66348570 Active 2023 Melida Jack MD Attn: Adi shane,[address] [place], [address], [place] [facility] 4 16:07:19 Vertigo 489384515 Active 2023 Melida Jack MD Attn: Adi shane,[address] [place], [address], [place] [facility] 4 16:07:22 Aortic valve stenosis 07851752 Active 2023 tavr Melida Jack MD Attn: Alenaalivia hsane,[address] [place], [address], [place] [facility] 4 16:08:58 Disorder of right sciatic nerve 1310696208634 02 Active 2024 Rory Winn [place] null, [place] [facility] 5 15:57:33 Cobalamin deficiency 239662872 Active 2024 Rory Winn [place] null, [place] [facility] 5 09:57:56 Problem Notes None recorded. Procedures Surgical History Date Name Laterality Status Provider Name and Address Organization Details Recorded Time Heart Surgery completed NOHEMI Yo [place] - [facility] 07/24/2023 10:08:33 Eye Surgery completed Yanira Jason NOHEMI [facility] 07/24/2023 10:08:39 Imaging Results None recorded. Procedure Notes None recorded. Medical Equipment None Reported. Allergies Allergen ID Allergen Name Allergen Category Reaction Reaction Severity Criticality Documentation Date Start Date Code Code System Note Provider Name and Address Organization Details Recorded Time 16990605 codeine medicatio n headache Not available [facility] [place] 07/24/20232009 2670 RxNorm PAM Perry, [facility] 5 11:06:55 608668 Substance with sulfonami de structure and antibacte rial mechanism of action (substanc e) medicatio n hives Not available [facility] [place] 07/24/20232009 02853 8003 SNOMED PAM Perry, [facility] 5 11:06:51 Medications Name Sig Start Date [...] MOUTH 3 TIMES A WEEK ON MON/MON/ FRI active Not Available Not Available No [...] Not Available Vitals Date Recorded Body height Heart rate Oxygen saturation Body mass index (BMI) Body weight Systolic And Diastolic Provider Name and Address Organization Details Last Updated DateTime 5 160.02 cm 76 /min 97 % 33.6 kg/m2 43846.1 9 g 118/76 mm[Hg] [facility] 5 10:17:49 Social History Question Answer Notes LastModified by Organizat ion Details LastModified Time Tobacco Smoking Status Never Smoker NOHEMI Yo null, [place] - [facility] 07/24/2023 10:09:20 Are You Blind Or Do [...] anxious, or unable to sleep at night)? IM8723-8 Information not available 11/27/2023 Family History Relationship Description Onset Age of this Age Resolved Age Notes LastModified by Organization Details LastModified Time Sister Hypertensive disorder [email or web address] Not available 07/03 10:09:29 Sister Hypercholest erolemia [email or web address] Not available 07/03 10:09:43 Sister Osteoporosis [email or web address] Not av ailable 07/24/2023 10:09:52 Notes:no new family history as of 11-27-2023 Medical History Condition Response Diabetes Y Anxiety Disorder Y High Blood Pressure Y Cancer Y [...] virus, trivalent, PF 6 completed Yanira Gomez RMHans [place], [place] [facility] 07/24/2023 09:51:49 Influenza, split virus, quadrivalent, PF 8 completed Yanira Gomez RMA [place], [place] [facility] 07/24/2023 09:51:49 Influenza, high-dose, trivalent, PF 4 completed Jenni Olivier [place], [place] [facility] 07/01/2024 13:35:43 Pneumococcal conjugate PCV20, polysaccharide YQF780 conjugate, adjuvant, PF 4 completed Jenni Olivier [place], [place] [facility] 07/01/2024 14:16:07 Past Encounters Encounter ID Performer Location Encounter Start Date Encounter Closed Date Diagnosis/Indication Diagnosis SNOMED-CT Code Diagnosis ICD10 Code Diagnosis IMO Codes Diagnosis Note [id number] Melida Jack MD [facility] [place] [address] [place] [address] 07/24/2023 09:48:11 07/24/2023 10:39:54 Type 2 diabetes mellitus 96390184 E11.9 Hyperlipidemia 27589272 E78.5 Essential hypertension 13704860 I10 Anxiety 84919981 F41.9 Obstructiv e sleep apnea syndrome 72079227 G47.33 Chronic rhinitis 0773957 6 J31.0 Fatigue 68865295 R53.83 Vertigo 378850400 R42 Aortic valve stenosis 60 370878 I35.0 [id number] Melida Jack MD [facility] [place] [address] [place] [address] 08/07/2023 09:39:48 08/07/2023 10:06:39 Vitamin B12 deficiency (non anemic) 69496608 E53.8 [id number] Melida Jack MD [facility] [place] [address] [place] [address] 08/14/2023 09:46:49 08/14/2023 12:07:05 Vitamin B12 deficiency (non anemic) 76140409 E53.8 [id number] Melida Jack MD [facility] [place] [address] [place] [address] 08/21/2023 09:41:37 08/21/2023 17:35:13 Vitamin B12 deficiency (non anemic) 51107328 E53.8 [id number] Melida Jack MD [facility] [place] [address] [place] [address] 08/29/2023 09:41:47 08/29/2023 14:30:50 Vitamin B12 deficiency (non anemic) 43816154 E53.8 [id number] Melida Jack MD [facility] [place] [address] [place] [address] 10/02/2023 10:03:19 10/02/2023 10:13:40 Vitamin B12 deficiency (non anemic) 25976859 E53.8 [id number] Melida Jack MD [facility] [place] [address] [place] [address] 11/16/2023 10:11:35 11/16/2023 10:47:08 Vitamin B12 deficiency (non anemic) 78987222 E53.8 [id number] Melida Jack MD [facility] [place] [address] [place] [address] 11/27/2023 10:19:00 11/27/2023 11:16:02 Obesity 425942316 E66.8 Type 2 shelly betes mellitus 65989697 E11.9 Essential hypertension 23533941 I10 Chronic rhinitis 8578979 6 J31.0 Anxiety 99108572 F41.9 Hyperlipidemia 13781895 E78.5 Obstructiv e sleep apnea syndrome 53726836 G47.33 Aortic valve stenosis 60 860374 I35.0 TAVR [id number] Melida Jack MD [facility] [place] [address] [place] [address] 12/19/2023 09:46:37 12/19/2023 15:51:15 Vitamin B12 deficiency (non anemic) 07892287 E53.8 [id number] Melida Jack MD [facility] [place] [address] [place] [address] 01/18/2024 09:52:57 01/18/2024 10:32:42 Vitamin B12 deficiency (non anemic) 70044223 E53.8 [id number] Melida Jack MD [facility] [place] [address] [place] [address] 02/19/2024 09:46:23 02/19/2024 09:59:32 Cobalamin deficiency 642720896 E53.8 [id number] Melida Jack MD [facility] [place] [address] [place] [address] 03/25/2024 10:53:49 03/25/2024 11:37:19 Body mass index 30+ - obesity 484555701 Z68.35 Obesity 382701539 E66.9 Cobalamin deficiency 190 702250 E53.8 Essential hypertension 13118356 I10 Anxiety 04234396 F41.9 Chronic rhinitis 3541693 6 J31.0 Hyperlipidemia 09494907 E78.5 Obstructiv e sleep apnea syndrome 10984850 G47.33 Aortic valve stenosis 60 797313 I35.0 TAVR [id number] Melida Jack MD [facility] [place] [address] [place] [address] 04/25/2024 10:39:07 04/25/2024 10:50:20 Cobalamin deficiency 290262477 E53.8 [id number] Melida Jack MD [facility] [place] [address] [place] [address] 05/27/2024 09:39:58 05/27/2024 10:11:18 Cobalamin deficiency 297375466 E53.8 [id number] Melida Jack MD [facility] [place] [address] [place] [address] 06/24/2024 09:41:39 06/24/2024 10:21:28 Cobalamin deficiency 053437810 E53.8 [id number] Melida Jack MD [facility] [place] [address] [place] [address] 07/01/2024 14:04:48 07/01/2024 15:02:27 Body mass index 30+ - obesity 731109066 Z68.35 Obesity 815818093 E66.9 Essential hypertension 03672676 I10 Hyperlipidemia 14570232 E78.5 Type 2 shelly betes mellitus 46561221 E11.9 [id number] Melida Jack MD [facility] [place] [address] [place] [address] 07/29/2024 10:54:18 07/29/2024 12:03:56 Body mass index 30+ - obesity 109063708 Z68.34 801416 Obese class I 4489501551 35347 E66.811 3128124542 Cobalamin deficiency 190 269211 E53.8 215231 Essential hypertension 87918107 I10 Hyperlipidemia 01435289 E78.5 Anxiety 38849203 F41.9 Type 2 shelly betes mellitus 07170303 E11.9 [id number] Melida Jack MD [facility] [address] [place] [address] 08/28/2024 13:56:26 08/28/2024 14:58:58 Obese class II 8064309129 29163 E66.047 0912925 Disorder o f right sciatic nerve 9863636938 71115 M54.31 447510 Cobalamin deficiency 190 402017 E53.8 [id number] Melida Jack MD [facility] [place] [address] [place] [address] 09/16/2024 14:46:29 09/16/2024 16:01:44 Body mass index 30+ - obesity 814724842 Z68.34 [id number] Obese class I 3543826905 15399 E66.811 2317247544 Disorder o f right sciatic nerve 9688576890 44814 M54.31 7393318 Essential hypertension 12482004 I10 [id number] Melida Jack MD [facility] [place] [address] [place] [address] 09/30/2024 09:55:41 09/30/2024 10:06:23 Cobalamin deficiency 085869967 E53.8 [id number] Melida Jack MD [facility] [place] [address] [place] [address] 10/31/2024 09:59:01 10/31/2024 15:13:05 Cobalamin deficiency 951149312 E53.8 950375 [id number] Melida Jack MD [facility] [place] [address] [place] [address] 11/21/2024 09:56:48 11/21/2024 10:43:55 Body mass index 30+ - obesity 535743208 Z68.33 369676 Obese class I 8065346010 58943 E66.811 E66.3 1796345880 Essential hypertension 92119478 I10 Anxiety 62326036 F41.9 Hyperlipidemia 41641121 E78.5 Type 2 shelly betes mellitus 54394557 E11.9 [id number] Melida Jack MD [facility] [place] [address] [place] [address] 12/03/2024 09:57:36 12/03/2024 14:00:20 Cobalamin deficiency 672966588 E53.8 747225 [id number] Melida Jack MD [facility] [place] [address] [place] [address] 01/02/2025 10:01:34 01/02/2025 13:29:11 Cobalamin deficiency 947999411 E53.8 838656 [id number] Melida Jack MD [facility] [place] [address] [place] [address] 02/03/2025 10:01:49 02/03/2025 11:44:03 Cobalamin deficiency 453530217 E53.8 [id number] Melida Jack MD [facility] [place] [address] [place] [address] 03/10/2025 09:55:09 03/10/2025 12:33:37 Cobalamin deficiency 452070380 E53.8 Health Concerns Section Related Observation LastModified by Organization Detai ls LastModified Time None Recorded Concern Status LastModified by Organization Details LastModified Time None Recorded Advance Directives Directive None Recorded Payers Insurance Date Sequence Insurance Name Policy Number Policy Torres Covered Member ID Torres Member ID Guarantor Name 07/01/2024 1 [place] Kadi Mccann [id number] Kadi Mccann 03/21/2025 [place] Kadi Mccann [id number] Kadi Mccann 03/21/2025 2 [employer]ECT (MEDICARE SUPPLEMENT) Kadi Mccann [id number] Kadi Mccann 03/10/2025 1 [place] Kadi Mccann [id number] Kadi Mccann 03/21/2025 [place] Kadi Mccann [id number] Kadi Mccann Notes Date Note Type Note Provider Name and Address Organization Details Recorded Time 11/21/2024 text/html Epidural back maybe a little bit better blood pressure is up tries to watch her sugar Melida Jack MD Attn: Accounting,[address] [place], [address], [facility] 12/01/2024 17:32:23 OBGyn Episode No OBEpisode recorded.
== END 2025-03-24 07:09 | disposition home or self-care (01) ==
LOC: CHSIMG 07:09
PROVIDERS: PCP Internal Medicine; Visit Provider Obstetrics & Gynecology Gynecology
DX: Z12.31 Encounter for screening mammogram for malignant neoplasm of breast (principal)
CPT/HCPCS: 77063; 77067